=== PATIENT | female | born 1965 | race American Indian/Alaskan Native ===

== ENCOUNTER 2018-08-22 16:05 | Inpatient (IN) | payer OTHER ==
--- NOTE | 2018-08-22 17:01 | ED PDOC ---
Arrival/HPI - General Time Seen by Provider: 08/22/18 16:31 Historian: Patient - History of Present Illness Narrative History of Present Illness (Text): 08/22/18 16:40 53 year old female, whose past medical history includes hypertension, who presents to the emergency department complaining of shortness of breath for the past approximately 2 weeks-1 month. Pt reports she went to Urgent Care prior to arrival, where they did an X-Ray that showed Cardiomegaly. Patient states she used to take 3 different medications for her hypertension but stopped taking them around 2015 since they made her very sleepy and made it difficult for her to go to work. Patient states she had a cold around the months of April/May, and took 4-5 medications to help relieve symptoms. Patient states she sleeps with 2 pillows under her head and about 2-5 under her legs for leg swelling. Patient notes shortness of breath, worsened when lying flat or walking short distances. Patient notes fatigue, weakness, and bilateral leg swelling. Patient denies any abdominal pain, or any other complaints. PMD: none Time/Duration: Other (Patient notes onset of shortness of breath as past 2 weeks-1 month) Symptom Onset: Sudden Symptom Course: Unchanged Activities at Onset: Light Past Medical History - Reproductive Currently : No Family/Social History Family/Social History: No Known Family HX Allergies/Home Meds Allergies/Adverse Reactions: Allergies No Known Allergies Allergy (Verified 08/22/18 16:11) Home Medications: Home Meds Medication Instructions Recorded Confirmed No Known Home Med 08/22/18 08/22/18 Review of Systems - Review of Systems Constitutional: Fatigue. absent: Normal Gastrointestinal: Normal. absent: Abdominal Pain Musculoskeletal: absent: Normal Physical Exam - Physical Exam Narrative Physical Exam (Text): Constitutional: No acute distress. Head: Normocephalic. Atraumatic. Eyes: PERRL. ENT: Moist mucous membranes. Neck: Supple. Cardiovascular: Tachycardia, no S3. No JVD. Chest: No tenderness. Respiratory: No wheezing. GI: Soft. Nontender. Nondistended. Back: No CVA tenderness. Musculoskeletal: Pitting edema bilaterally. Skin: No rash. Neurologic: Alert, no focal deficit. Medical Decision Making ED Course and Treatment: 08/22/18 16:40 Impression: 53 year old female who presents to the emergency department for shortness of breath for past 2 weeks-1 month Differential Diagnosis included but are not limited to: Plan: -- EKG -- Labs -- X-Ray of chest -- Lasix -- Reassess and disposition Progress Notes: 08/22/18 19:50 Called lab for these results: proBNP [address] Obrien accepts patient to hospitalist service. - RAD Interpretation Radiology Orders: 08/22/18 16:47 CHEST PORTABLE [RAD] Stat - Medication Orders Current Medication Orders: Discontinued Medications Furosemide (Lasix) 20 mg IVP STAT STA Stop: 08/22/18 16:48 - Scribe Statement The provider has reviewed the documentation as recorded by the Scribe Diana Schroeder All medical record entries made by the Scribe were at my direction and personally dictated by me. I have reviewed the chart and agree that the record accurately reflects my personal performance of the history, physical exam, medical decision making, and the department course for this patient. I have also personally directed, reviewed, and agree with the discharge instructions and disposition. Disposition/Present on Arrival - Present on Arrival Any Indicators Present on Arrival: No - Disposition Have Diagnosis and Disposition been Completed?: Yes Diagnosis: CHF exacerbation Disposition: HOSPITALIZED Disposition Time: 20:00 Patient Plan: Admission, Telemetry Condition: GUARDED Discharge Instructions (ExitCare): Heart Failure (ED)
[2018-08-22 17:30] LABS: BASO # 0.02 K/mm3 (0.0-2.0); BASO % 0.2 % (0.0-3.0); EOS # 0.1 (0.0-0.7); EOS % 1.5 % (1.5-5.0); HEMOGLOBIN 11.3 g/dL (12.0-16.0); LYMPH # 1.6 (1.2-3.4); LYMPH % 19.5 % (22.0-35.0); MEAN CELL VOLUME 83.8 fl (80.0-105.0); MEAN CORPUSCULAR HEMOGLOBIN 26.1 pg (25.0-35.0); MEAN CORPUSCULAR HGB CONC 31.1 g/dl (31.0-37.0); MEAN PLATELET VOLUME 11.7 fl (7.0-11.0); MONO # 0.9 (0.1-0.6); MONO % 10.6 % (1.0-6.0); RBC 4.33 10^6/uL (3.5-6.1); RED CELL DISTRIBUTION WIDTH 16.2 % (11.5-14.5); WHITE BLOOD COUNT 8.2 10^3/uL (4.5-11.0)
[2018-08-22 17:37] LABS: INR 1.3; PARTIAL THROMBOPLASTIN TIME 29.7 Seconds (26.9-38.3); PROTHROMBIN TIME 14.4 SECONDS (9.4-12.5)
[2018-08-22 19:24] LABS: ALB/GLOB RATIO 1.1 (1.1-1.8); ALBUMIN 3.8 g/dL (3.0-4.8); ALT/SGPT 47 U/L (7-56); AST/SGOT 33 U/L (14-36); BLOOD UREA NITROGEN 17 mg/dL (7-21); CALCIUM 9.2 mg/dL (8.4-10.5); GFR NON-AFRICAN AMERICAN 58
[2018-08-22 19:50] LABS: B-TYPE NATRIURETIC PEPTIDE 3520 pg/mL (0-450); TROPONIN I 0.02 ng/mL
--- NOTE | 2018-08-22 20:34 | CP.PCM.HP ---
<Milo Beckman - Last Filed: 08/23/18 00:10> History of Present Illness - History of Present Illness History of Present Illness: Milo Beckman, PGY1 H&P for Dr. Obrien cc: "shortness of breath" Patient is a 53 year old female with PMHx of HTN who presented to the ED complaining of worsening shortness of breath for 3 months in duration. In the ED, Vitals: Temp 98.4, HR 116, BP 195/112, RR 20, SaO2 95%. Medical team was consulted for evaluation. She says her functional tolerance has decreased in the past few months. She gets short of breath walking less than half a block. She has not taken BP meds since 2016 because of the side effects. Patient also eats a diet that is high in salt. She also endorses a persistent cough for the past few months. She has orthopnea, sleeps with x2 pillows under her head and neck at night. Shortness of breath is worse when lying down flat. Denies chest pain, ab dominal pain, lightheadedness, dizziness, fevers, chills, n/v/d. She has no sick contents and no recent travel history. 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 She says she has never had an echo done before. A full 12 point ROS was conducted and unremarkable except as stated above PMD: Shaik Thomas PMhx: HTN PSHx: , brain tumor surgery (1992) Meds: none Allergies: NKDA SocialHx: denies smoking, EtOH, and recreational drug use. Lives at home with daughter. FamHx: Mother from [place] at 35 y/o. Present on Admission - Present on Admission Any Indicators Present on Admission: No Review of Systems - Review of Systems All systems: reviewed and no additional remarkable complaints except (as per HPI.) Past Patient History - Past Social History Smoking Status: Never Smoked - PSYCHIATRIC Hx Substance Use: No - SURGICAL HISTORY Hx Surgeries: No Meds Allergies/Adverse Reactions: Allergies Allergy/AdvReac Type Severity Reaction Status Date / Time No Known Allergies Allergy Verified 08/22/18 16:11 Physical Exam - Constitutional Appears: No Acute Distress - Head Exam Head Exam: ATRAUMATIC, NORMAL INSPECTION, NORMOCEPHALIC - Eye Exam Eye Exam: EOMI, Normal appearance Pupil Exam: NORMAL ACCOMODATION - ENT Exam ENT Exam: Mucous Membranes Moist, Normal Exam - Neck Exam Additional comments: Positive hepatojugular reflex. - Respiratory Exam Respiratory Exam: Rales (Fine crackles noted at the lung bases ). absent: Accessory Muscle Use, Chest Wall Tenderness, Rhonchi, Wheezes, Stridor - Cardiovascular Exam Cardiovascular Exam: REGULAR RHYTHM, +S1, +S2 - GI/Abdominal Exam GI & Abdominal Exam: Normal Bowel Sounds, Soft. absent: Distended, Firm, Guarding, Rebound, Rigid, Tenderness - Extremities Exam Extremities exam: Positive for: normal capillary refill, pedal edema, pedal pulses present. Negative for: calf tenderness, tenderness Additional comments: +2 pitting edema of the bilateral lower extremity - Neurological Exam Neurological exam: Alert, CN II-XII Intact, Oriented x3, Reflexes Normal - Psychiatric Exam Psychiatric exam: Normal Affect, Normal Mood - Skin Skin Exam: Dry, Intact, Normal Color, Warm Results - Vital Signs Recent Vital Signs: Last Vital Signs Temp 98.4 F 08/22/18 16:11 Pulse 102 H 08/22/18 18:00 Resp 20 08/22/18 18:00 BP 168/104 H 08/22/18 18:00 Pulse Ox 98 08/22/18 18:00 - Labs Result Diagrams: 08/22/18 17:19 08/22/18 19:00 Labs: Laboratory Results - last 24 hr 08/22/18 08/22/18 08/22/18 17:19 17:19 17:39 WBC 8.2 RBC 4.33 Hgb 11.3 L Hct 36.3 MCV 83.8 MCH 26.1 MCHC 31.1 RDW 16.2 H Plt Count 327 MPV 11.7 H Neut % (Auto) 68.2 H Lymph % (Auto) 19.5 L [place] % (Auto) 10.6 H Eos % (Auto) 1.5 Baso % (Auto) 0.2 Lymph # (Auto) 1.6 Deuel # (Auto) 0.9 H Eos # (Auto) 0.1 Baso # (Auto) 0.02 Absolute Neuts (auto) 5.56 PT 14.4 H INR 1.30 APTT 29.7 Sodium Potassium Chloride Carbon Dioxide Anion Gap BUN Creatinine Est GFR ( Amer) Est GFR (Non-Af Amer) Random Glucose Calcium Total Bilirubin AST ALT Alkaline Phosphatase Total Creatine Kinase Troponin I NT-Pro-B Natriuret Pep Total Protein Albumin Globulin Albumin/Globulin Ratio Beta HCG, Quant < 2.39 08/22/18 19:00 WBC RBC Hgb Hct MCV MCH MCHC RDW Plt Count MPV Neut % (Auto) Lymph % (Auto) Deuel % (Auto) Eos % (Auto) Baso % (Auto) Lymph # (Auto) Deuel # (Auto) Eos # (Auto) Baso # (Auto) Absolute Neuts (auto) PT INR APTT Sodium 142 Potassium 4.2 Chloride 107 Carbon Dioxide 28 Anion Gap 11 BUN 17 Creatinine 1.0 Est GFR ( Amer) > 60 Est GFR (Non-Af Amer) 58 Random Glucose 114 H Calcium 9.2 Total Bilirubin 1.6 H AST 33 ALT 47 Alkaline Phosphatase 108 Total Creatine Kinase 173 Troponin I 0.02 NT-Pro-B Natriuret Pep 3520 H Total Protein 7.5 Albumin 3.8 Globulin 3.6 Albumin/Globulin Ratio 1.1 Beta HCG, Quant Assessment & Plan - Assessment and Plan (Free Text) Assessment: Patient is a 53 year old female with PMHx of HTN who presented to the ED complaining of worsening shortness of breath for 3 months in duration. Patient will be admitted for new onset CHF likely due to uncontrolled HTN. Plan: New Onset CHF (NYHA Class III) in the setting of Uncontrolled HTN - Echo - Cardio consulted. Will follow up recommendations. - Initial trop is .02, will trend trops q6 - Strict ins/outs - Lasix 20mg IVP q12 - Lisinopril 20mg daily - EKG: sinus tachycardia, HR 115. No ST or T wave changes. QT prolonged. Poor R- wave progression. - T4 and TSH - Lipid Panel - LDH - BNP 3520 in ED - CXR: no active cardiopulmonary disease. Atelectasis. - Patient has premature CAD in family Hypertensive Urgency with Hx HTN - BP in ED was 195/112 - Lisinopril 20mg daily - Hydralazine 10mg PO prn - Patient does not take any BP meds at home - monitor BP GI ppx: ptx DVT ppx: hep sc Diet: HHD Dispo: Will monitor patient on telemetry. Pending echo in the morning and further recommendations from cardiologiy. Case was discussed and reviewed with Dr. Obrien <Alli Obrien - Last Filed: 08/23/18 06:55> Results - Vital Signs Recent Vital Signs: Last Vital Signs Temp 97.6 F 08/23/18 06:00 Pulse 102 H 08/23/18 06:00 Resp 20 08/23/18 06:00 BP 149/77 08/23/18 06:00 Pulse Ox 98 08/23/18 06:00 - Labs Result Diagrams: 08/22/18 17:19 08/22/18 19:00 Labs: Laboratory Results - last 24 hr 08/22/18 08/22/18 08/22/18 17:19 17:19 17:39 WBC 8.2 RBC 4.33 Hgb 11.3 L Hct 36.3 MCV 83.8 MCH 26.1 MCHC 31.1 RDW 16.2 H Plt Count 327 MPV 11.7 H Neut % (Auto) 68.2 H Lymph % (Auto) 19.5 L [place] % (Auto) 10.6 H Eos % (Auto) 1.5 Baso % (Auto) 0.2 Lymph # (Auto) 1.6 Deuel # (Auto) 0.9 H Eos # (Auto) 0.1 Baso # (Auto) 0.02 Absolute Neuts (auto) 5.56 PT 14.4 H INR 1.30 APTT 29.7 Sodium Potassium Chloride Carbon Dioxide Anion Gap BUN Creatinine Est GFR ( Amer) Est GFR (Non-Af Amer) Random Glucose Calcium Total Bilirubin AST ALT Alkaline Phosphatase Total Creatine Kinase Troponin I NT-Pro-B Natriuret Pep Total Protein Albumin Globulin Albumin/Globulin Ratio Beta HCG, Quant < 2.39 08/22/18 08/23/18 19:00 00:20 WBC RBC Hgb Hct MCV MCH MCHC RDW Plt Count MPV Neut % (Auto) Lymph % (Auto) Deuel % (Auto) Eos % (Auto) Baso % (Auto) Lymph # (Auto) Deuel # (Auto) Eos # (Auto) Baso # (Auto) Absolute Neuts (auto) PT INR APTT Sodium 142 Potassium 4.2 Chloride 107 Carbon Dioxide 28 Anion Gap 11 BUN 17 Creatinine 1.0 Est GFR ( Amer) > 60 Est GFR (Non-Af Amer) 58 Random Glucose 114 H Calcium 9.2 Total Bilirubin 1.6 H AST 33 ALT 47 Alkaline Phosphatase 108 Total Creatine Kinase 173 Troponin I 0.02 0.02 NT-Pro-B Natriuret Pep 3520 H Total Protein 7.5 Albumin 3.8 Globulin 3.6 Albumin/Globulin Ratio 1.1 Beta HCG, Quant Attending/Attestation - Attestation I have personally seen and examined this patient.: Yes I have fully participated in the care of the patient.: Yes I have reviewed all pertinent clinical information: Yes Notes (Text): 08/23/18 06:54 Patient was seen when she was in . Medical record was reviewed. Agree with history, physical examination, assessment and plan.
[2018-08-23 00:12] VITALS: BMI 42.0
--- NOTE | 2018-08-23 02:19 | CP.PCM.PN ---
<Milo Beckman - Last Filed: 08/23/18 02:16> Subjective - Date & Time of Evaluation Date of Evaluation: 08/23/18 Time of Evaluation: 02:16 - Subjective Subjective: PGY1 Note for House Doc S - Paged from nursing staff about x5 beats VTach O - Rhythm strip reviewed -- 5 beats but HR only 103. - Vital signs were repeated and reviewed. Stable. - Now in normal sinus rhythm. Pt sleeping and asymptomatic A - x5 beats Vtach P - Pt is not on any meds that would induce vtach or prolonged qt interval - She is asymptomatic; will monitor Objective - Vital Signs/Intake and Output Vital Signs (last 24 hours): Temp Pulse Resp BP Pulse Ox 97.7 F 100 H 20 169/114 H 99 08/23/18 00:01 08/23/18 01:59 08/23/18 00:01 08/23/18 00:01 08/23/18 00:01 - Medications Medications: Current Medications Furosemide (Lasix) 20 mg IVP Q12 [facility] Heparin Sodium (Porcine) (Heparin) 5,000 units SC Q8 [facility]; Protocol Hydralazine HCl (Apresoline) 10 mg IVP Q6 PRN PRN Reason: Systolic Blood Pressure Lisinopril (Zestril) 20 mg PO DAILY [facility] Pantoprazole Sodium (Protonix Ec Tab) 40 mg PO 0600 [facility] - Labs Labs: 08/22/18 17:19 08/22/18 19:00 PT 14.4 SECONDS (9.4-12.5) H 08/22/18 17:19 INR 1.30 08/22/18 17:19 APTT 29.7 Seconds (26.9-38.3) 08/22/18 17:19 <Alli Obrien - Last Filed: 08/23/18 06:53> Objective - Vital Signs/Intake and Output Vital Signs (last 24 hours): Temp Pulse Resp BP Pulse Ox 97.6 F 102 H 20 149/77 98 08/23/18 06:00 08/23/18 06:00 08/23/18 06:00 08/23/18 06:00 08/23/18 06:00 Intake and Output: 08/22/18 08/23/18 18:59 06:59 Intake Total 240 Output Total 100 Balance 140 - Medications Medications: Current Medications Furosemide (Lasix) 20 mg IVP Q12 [facility] Heparin Sodium (Porcine) (Heparin) 5,000 units SC Q8 [facility]; Protocol Last Admin: 08/23/18 05:14 Dose: 5,000 units Hydralazine HCl (Apresoline) 10 mg IVP Q6 PRN PRN Reason: Systolic Blood Pressure Last Admin: 08/23/18 02:45 Dose: 10 mg Lisinopril (Zestril) 20 mg PO DAILY [facility] Pantoprazole Sodium (Protonix Ec Tab) 40 mg PO 0600 [facility] Last Admin: 08/23/18 05:14 Dose: 40 mg - Labs Labs: 08/22/18 17:19 08/22/18 19:00 PT 14.4 SECONDS (9.4-12.5) H 08/22/18 17:19 INR 1.30 08/22/18 17:19 APTT 29.7 Seconds (26.9-38.3) 08/22/18 17:19 Attending/Attestation - Attestation I have personally seen and examined this patient.: Yes I have fully participated in the care of the patient.: Yes I have reviewed all pertinent clinical information, including history, physical exam and plan: Yes Notes (Text): 08/23/18 06:53 agree with documentation.
[2018-08-23] MEDS: Pantoprazole 40 mg EC Tab PO SCH (05:14)
[2018-08-23 07:27] LABS: BARBITURATES, UR NEGATIVE (NEGATIVE); BENZODIAZEPINES, UR NEGATIVE (NEGATIVE); OPIATES, UR NEGATIVE (NEGATIVE); PHENCYCLIDINE, UR NEGATIVE (NEGATIVE)
[2018-08-23 07:50] LABS: ALBUMIN 3.4 g/dL (3.0-4.8); ALT/SGPT 51 U/L (7-56); AST/SGOT 33 U/L (14-36); BLOOD UREA NITROGEN 15 mg/dL (7-21); CALCIUM 8.4 mg/dL (8.4-10.5); GFR NON-AFRICAN AMERICAN > 60; HDL CHOLESTEROL 34 mg/dL (29-60)
[2018-08-23 08:01] LABS: TROPONIN I 0.02 ng/mL
[2018-08-23 08:06] LABS: LDL CHOLESTEROL 73 mg/dL (0-129)
[2018-08-23 08:12] LABS: FREE T4 1.22 ng/dL (0.78-2.19)
[2018-08-23 08:30] LABS: HEMOGLOBIN 9.8 g/dL (12.0-16.0); MEAN CELL VOLUME 82.7 fl (80.0-105.0); MEAN CORPUSCULAR HEMOGLOBIN 25.7 pg (25.0-35.0); MEAN PLATELET VOLUME 11.2 fl (7.0-11.0); RBC 3.82 10^6/uL (3.5-6.1); RED CELL DISTRIBUTION WIDTH 15.9 % (11.5-14.5); WHITE BLOOD COUNT 6.6 10^3/uL (4.5-11.0)
--- NOTE | 2018-08-23 08:43 | RAD ---
Date of service: 08/22/2018 HISTORY: sob COMPARISON: No prior. FINDINGS: LUNGS: No active pulmonary disease. PLEURA: No pleural effusion or pneumothorax. Mild elevation of the right hemidiaphragm common nonspecific. CARDIOVASCULAR: No aortic atherosclerotic calcification present. Normal cardiac size. No pulmonary vascular congestion. OSSEOUS STRUCTURES: No significant abnormalities. VISUALIZED UPPER ABDOMEN: Normal. OTHER FINDINGS: None. IMPRESSION: No active disease.
--- NOTE | 2018-08-23 10:37 | CP.PCM.CON ---
History of Present Illness - History of Present Illness History of Present Illness: Awake, alert, no distress Reason for consultation: Cardiac evaluation of shortness of breath Brief history of present illness: A 53 year old female who came in to the ER due to progressive shortness of breath for the past 3 months. She claimed to have shortness of breath when walking half a block. She sleeps with 2 pillows. She ca n not lay flat due to shortness of breath. Denies chest pain. History of hypertension but not compliant with medications due to side effects. Seen and examined by me and Dr. Roe Review of Systems - Review of Systems All systems: reviewed and no additional remarkable complaints except Review of Systems: as per HPI Past Patient History - Past Social History Smoking Status: Never Smoked - CARDIAC Hx Hypertension: Yes - NEUROLOGICAL Hx Neurological Disorder: Yes (brain tumor-benign) - MUSCULOSKELETAL/RHEUMATOLOGICAL Hx Falls: No - PSYCHIATRIC Hx Substance Use: No - SURGICAL HISTORY Hx Surgeries: No Meds Allergies/Adverse Reactions: Allergies Allergy/AdvReac Type Severity Reaction Status Date / Time No Known Allergies Allergy Verified 08/22/18 16:11 - Medications Medications: Current Medications Furosemide (Lasix) 20 mg IVP Q12 [facility] Heparin Sodium (Porcine) (Heparin) 5,000 units SC Q8 [facility]; Protocol Last Admin: 08/23/18 05:14 Dose: 5,000 units Hydralazine HCl (Apresoline) 10 mg IVP Q6 PRN PRN Reason: Systolic Blood Pressure Last Admin: 08/23/18 02:45 Dose: 10 mg Lisinopril (Zestril) 20 mg PO DAILY [facility] Pantoprazole Sodium (Protonix Ec Tab) 40 mg PO 0600 [facility] Last Admin: 08/23/18 05:14 Dose: 40 mg Physical Exam - Constitutional Appears: Non-toxic, No Acute Distress - Head Exam Head Exam: NORMAL INSPECTION, NORMOCEPHALIC - Eye Exam Eye Exam: Normal appearance Pupil Exam: NORMAL ACCOMODATION - ENT Exam ENT Exam: Mucous Membranes Moist, Normal Exam - Respiratory Exam Respiratory Exam: Decreased Breath Sounds, NORMAL BREATHING PATTERN - Cardiovascular Exam Cardiovascular Exam: Tachycardia, +S1, +S2 Additional comments: Telemetry 100-110 ST - GI/Abdominal Exam GI & Abdominal Exam: Normal Bowel Sounds, Soft - Extremities Exam Extremities exam: Positive for: full ROM Additional comments: 2+edema - Neurological Exam Neurological exam: Alert, Oriented x3 - Psychiatric Exam Psychiatric exam: Normal Affect, Normal Mood - Skin Skin Exam: Dry, Normal Color, Warm Results - Vital Signs Recent Vital Signs: Last Vital Signs Temp 97.6 F 08/23/18 06:00 Pulse 102 H 08/23/18 06:00 Resp 20 08/23/18 06:00 BP 149/77 08/23/18 06:00 Pulse Ox 98 08/23/18 06:00 - Labs Result Diagrams: 08/23/18 05:00 08/23/18 07:15 Labs: Laboratory Results - last 24 hr 08/22/18 08/22/18 08/22/18 17:19 17:19 17:39 WBC 8.2 RBC 4.33 Hgb 11.3 L Hct 36.3 MCV 83.8 MCH 26.1 MCHC 31.1 RDW 16.2 H Plt Count 327 MPV 11.7 H Neut % (Auto) 68.2 H Lymph % (Auto) 19.5 L [place] % (Auto) 10.6 H Eos % (Auto) 1.5 Baso % (Auto) 0.2 Lymph # (Auto) 1.6 [place] # (Auto) 0.9 H Eos # (Auto) 0.1 Baso # (Auto) 0.02 Absolute Neuts (auto) 5.56 PT 14.4 H INR 1.30 APTT 29.7 Sodium Potassium Chloride Carbon Dioxide Anion Gap BUN Creatinine Est GFR ( Amer) Est GFR (Non-Af Amer) Random Glucose Calcium Phosphorus Magnesium Total Bilirubin AST ALT Alkaline Phosphatase Lactate Dehydrogenase Total Creatine Kinase Troponin I NT-Pro-B Natriuret Pep Total Protein Albumin Globulin Albumin/Globulin Ratio Triglycerides Cholesterol LDL Cholesterol Direct HDL Cholesterol Free T4 TSH 3rd Generation Beta HCG, Quant < 2.39 Urine Opiates Screen Urine Methadone Screen Ur Barbiturates Screen Ur Phencyclidine Scrn Ur Amphetamines Screen U Benzodiazepines Scrn U Oth Cocaine Metabols U Cannabinoids Screen 08/22/18 08/23/18 08/23/18 19:00 00:20 05:00 WBC 6.6 RBC 3.82 Hgb 9.8 L Hct 31.6 L MCV 82.7 MCH 25.7 MCHC 31.0 RDW 15.9 H Plt Count 259 MPV 11.2 H Neut % (Auto) Lymph % (Auto) [place] % (Auto) Eos % (Auto) Baso % (Auto) Lymph # (Auto) [place] # (Auto) Eos # (Auto) Baso # (Auto) Absolute Neuts (auto) PT INR APTT Sodium 142 Potassium 4.2 Chloride 107 Carbon Dioxide 28 Anion Gap 11 BUN 17 Creatinine 1.0 Est GFR ( Amer) > 60 Est GFR (Non-Af Amer) 58 Random Glucose 114 H Calcium 9.2 Phosphorus Magnesium Total Bilirubin 1.6 H AST 33 ALT 47 Alkaline Phosphatase 108 Lactate Dehydrogenase Total Creatine Kinase 173 Troponin I 0.02 0.02 NT-Pro-B Natriuret Pep 3520 H Total Protein 7.5 Albumin 3.8 Globulin 3.6 Albumin/Globulin Ratio 1.1 Triglycerides Cholesterol LDL Cholesterol Direct HDL Cholesterol Free T4 TSH 3rd Generation Beta HCG, Quant Urine Opiates Screen Urine Methadone Screen Ur Barbiturates Screen Ur Phencyclidine Scrn Ur Amphetamines Screen U Benzodiazepines Scrn U Oth Cocaine Metabols U Cannabinoids Screen 08/23/18 08/23/18 08/23/18 06:30 07:15 07:15 WBC RBC Hgb Hct MCV MCH MCHC RDW Plt Count MPV Neut % (Auto) Lymph % (Auto) [place]ack[place] % (Auto) Eos % (Auto) Baso % (Auto) Lymph # (Auto) [place] # (Auto) Eos # (Auto) Baso # (Auto) Absolute Neuts (auto) PT INR APTT Sodium 139 Potassium 4.1 Chloride 108 H Carbon Dioxide 28 Anion Gap 7 L BUN 15 Creatinine 0.9 Est GFR ( Amer) > 60 Est GFR (Non-Af Amer) > 60 Random Glucose 120 H Calcium 8.4 Phosphorus 3.6 Magnesium 2.0 Total Bilirubin 1.6 H AST 33 ALT 51 Alkaline Phosphatase 96 Lactate Dehydrogenase 705 H Total Creatine Kinase Troponin I 0.02 NT-Pro-B Natriuret Pep Total Protein 6.7 Albumin 3.4 Globulin 3.3 Albumin/Globulin Ratio 1.0 L Triglycerides 51 Cholesterol 117 L LDL Cholesterol Direct 73 HDL Cholesterol 34 Free T4 1.22 TSH 3rd Generation 1.20 Beta HCG, Quant Urine Opiates Screen Negative Urine Methadone Screen Negative Ur Barbiturates Screen Negative Ur Phencyclidine Scrn Negative Ur Amphetamines Screen Negative U Benzodiazepines Scrn Negative U Oth Cocaine Metabols Negative U Cannabinoids Screen Negative Assessment & Plan - Assessment and Plan (Free Text) Assessment: A 53 year old female who came in to the ER due to progressive shortness of breath for the past 3 months. She claimed to have shortness of breath when walking half a block. She sleeps with 2 pillows. She can not lay flat due to shortness of breath. Denies chest pain. History of hypertension but not compliant with medications due to side effects. Troponin normal x 3. Elevated BNP. Chest X ray showed no pulmonary vascular congestion.Will order echo to evaluate LV function, Stress test for ischemia, CT of chest to rule out any abnormalities. Uncontrolled hypertension. No cardiac work up done at [facility]. Leg swelling, rule out DVT will order doppler studies. Plan: No distress, mild shortness of breath on exertion For Echo to evaluate LV function For Stress test to rule out myocardial ischemia CT of chest without contrast to rule out pulmonary embolism US of lower extremities to rule out DVT Uncontrolled hypertension Started on Lopressor and Hydralazine On Zestril 20 mg daily,Lasix 20 mg daily,Hydralazine 25 mg BID, Lopressor 25 mg BID, Heparin 5000 units every 8 hours Continue current treatment Continue current medications Further recommendation during hospital course Will follow up Plan and treatment discussed with Dr. Roe Thank you Dr. Reinoso for the opportunity of taking care of Sachi Marte - Date & Time Date: 08/23/18 Time: 06:30
--- NOTE | 2018-08-23 11:30 | CARD ---
APPROVED REPORT Date of service: 08/22/2018 EKG Measurement Heart [id number] <Conclusion> Sinus tachycardia Possible Left atrial enlargement
--- NOTE | 2018-08-23 12:09 | CP.PCM.PN ---
<Eddy Sánchez - Last Filed: 08/23/18 13:03> Subjective - Date & Time of Evaluation Date of Evaluation: 08/23/18 Time of Evaluation: 12:05 - Subjective Subjective: INTERNAL MEDICINE PROGRESS NOTE FOR DR. SEB Sánchez PGY1 Pt seen and examined at bedside this am. Reports no acute complaints. Reports she has noticed swelling in legs for several months and has been noncompliant with medications. She continues to reports SOB. She otherwise denies 12 point ROS Objective - Vital Signs/Intake and Output Vital Signs (last 24 hours): Temp Pulse Resp BP Pulse Ox 97.6 F 102 H 20 155/73 H 98 08/23/18 06:00 08/23/18 06:00 08/23/18 06:00 08/23/18 10:43 08/23/18 06:00 Intake and Output: 08/23/18 08/23/18 06:59 18:59 Intake Total 240 Output Total 100 Balance 140 - Medications Medications: Current Medications Furosemide (Lasix) 20 mg IVP Q12 [facility] Last Admin: 08/23/18 10:43 Dose: 20 mg Heparin Sodium (Porcine) (Heparin) 5,000 units SC Q8 [facility]; Protocol Last Admin: 08/23/18 05:14 Dose: 5,000 units Hydralazine HCl (Apresoline) 10 mg IVP Q6 PRN PRN Reason: Systolic Blood Pressure Last Admin: 08/23/18 02:45 Dose: 10 mg Hydralazine HCl (Apresoline) 25 mg PO BID [facility] Lisinopril (Zestril) 20 mg PO DAILY [facility] Last Admin: 08/23/18 10:43 Dose: 20 mg Metoprolol Tartrate (Lopressor) 25 mg PO BID [facility] Pantoprazole Sodium (Protonix Ec Tab) 40 mg PO 0600 [facility] Last Admin: 08/23/18 05:14 Dose: 40 mg - Labs Labs: 08/23/18 05:00 08/23/18 07:15 PT 14.4 SECONDS (9.4-12.5) H 08/22/18 17:19 INR 1.30 08/22/18 17:19 APTT 29.7 Seconds (26.9-38.3) 08/22/18 17:19 - Constitutional Appears: Well, Non-toxic, No Acute Distress - Head Exam Head Exam: NORMAL INSPECTION, NORMOCEPHALIC - Eye Exam Eye Exam: EOMI, Normal appearance - ENT Exam ENT Exam: Mucous Membranes Moist, Normal Exam - Neck Exam Neck Exam: Normal Inspection - Respiratory Exam Respiratory Exam: Decreased Breath Sounds, Clear to Ausculation Bilateral, NORMAL BREATHING PATTERN - Cardiovascular Exam Cardiovascular Exam: Tachycardia, +S1, +S2 - GI/Abdominal Exam GI & Abdominal Exam: Soft. absent: Tenderness Additional comments: obese - Extremities Exam Extremities Exam: Pedal Edema. absent: Calf Tenderness - Back Exam Back Exam: NORMAL INSPECTION - Neurological Exam Neurological Exam: Alert, Awake, Oriented x3 - Psychiatric Exam Psychiatric exam: Normal Affect, Normal Mood - Skin Skin Exam: Dry, Intact, Warm Assessment and Plan - Assessment and Plan (Free Text) Assessment: 53 y/o F with PMHx of HTN who presented to the ED complaining of worsening shortness of breath for 3 months in duration. Patient admitted for dypnea with questionable CHF 2/2 uncontrolled HTN. Plan: Acute systolic congestive heart failure in the setting of uncontrolled hypertension No prior echo's in chart, unclear whether chronic CHF Echo reveals severely impaired systolic function, EF: 25%. LV mildly dilated. Mod concentric LVH. Initial trop is .02 x 3. EKG: sinus tachycardia, HR 115. No ST or T wave changes. QT prolonged. Poor R-wave progression. TSH/T4/Lipid panel wnl. Elevated BNP initially continue Lasix 20mg IVP q12 obtain CTA to rule out PE strict I/Os Daily weights Pt to undergo stress test with cardiology Hypertensive Urgency with Hx HTN BP in ED was 195/112. Pt has been noncompliant with antihypertensives Lisinopril 20mg daily Hydralazine 25mg bid Carevedilol 12.5mg bid Abdominal pain elevated T. Jarad f/u abdomen u/s DVT/GI PPx: hep/protonix po Case seen, examined and discussed with attending physician, Dr. Seb Sánchez PGY1 <Sue Grigsby - Last Filed: 08/25/18 06:57> Objective - Vital Signs/Intake and Output Vital Signs (last 24 hours): Temp Pulse Resp BP Pulse Ox 98.3 F 82 20 126/80 98 08/25/18 06:00 08/25/18 06:00 08/25/18 06:00 08/25/18 06:00 08/25/18 06:00 Intake and Output: 08/24/18 08/25/18 18:59 06:59 Intake Total 420 Output Total 400 Balance 20 - Medications Medications: Current Medications Aspirin (Ecotrin) 81 mg PO DAILY [facility] Carvedilol (Coreg) 25 mg PO BID [facility] Last Admin: 08/24/18 17:46 Dose: 25 mg Clopidogrel Bisulfate (Plavix) 75 mg PO DAILY [facility] Furosemide (Lasix) 20 mg IVP Q12 [facility] Last Admin: 08/24/18 21:17 Dose: 20 mg Heparin Sodium (Porcine) (Heparin) 5,000 units SC Q8 [facility]; Protocol Last Admin: 08/25/18 06:19 Dose: 5,000 units Hydralazine HCl (Apresoline) 10 mg IVP Q6 PRN PRN Reason: Systolic Blood Pressure Last Admin: 08/23/18 02:45 Dose: 10 mg Hydralazine HCl (Apresoline) 25 mg PO BID [facility] Last Admin: 08/24/18 17:47 Dose: 25 mg Lisinopril (Zestril) 20 mg PO DAILY [facility] Last Admin: 08/24/18 13:06 Dose: 20 mg Pantoprazole Sodium (Protonix Ec Tab) 40 mg PO 0600 [facility] Last Admin: 08/25/18 06:19 Dose: 40 mg - Labs Labs: 08/25/18 05:30 08/25/18 05:30 PT 14.4 SECONDS (9.4-12.5) H 08/22/18 17:19 INR 1.30 08/22/18 17:19 APTT 29.7 Seconds (26.9-38.3) 08/22/18 17:19 Attending/Attestation - Attestation I have personally seen and examined this patient.: Yes I have fully participated in the care of the patient.: Yes I have reviewed all pertinent clinical information, including history, physical exam and plan: Yes Notes (Text): Patient seen and examined by me with resident at 8:50 AM in 08/23/18. Case including HPI, physical exam, and assessment and plan discussed with resident. Agree with above with following additions/corrections. Patient is a 53-year-old female past medical history significant for hypertension and noncompliance with medications that presented to the emergency room with shortness of breath and lower extremity edema worsening over the past 3 months. Patient states she is feeling ok. States she still feels short of breath. Also complains of swelling in her lower extremities. Patient states she was on blood pressure medications years ago but stopped taking them a long time ago. Patient states she thought the shortness of breath may be related to a cold so she eduardo d to come into the emergency room until she realized it was not getting better. Patient denies chest pain or palpitations. No fevers or chills. No nausea, vomiting, or abdominal pain. No dysuria or difficulty urinating. No diarrhea or constipation. Physical exam: General: Awake and alert sitting up in bed in no acute distress HEENT: Normocephalic, atraumatic. Extraocular muscles intact, pupils equal and reactive, no scleral icterus. Oropharynx is pink and moist. No pharyngeal erythema or exudate apreciated. Neck is supple. Cardiovascular: Regular rhythm. Normal S1 and S2. No murmurs, rubs, or gallops appreciated Pulmonary: Normal respiratory effort. Decreased breath sounds at bases. No rh onchi, rales, or wheezing appreciated. Gastrointestinal: Soft, nondistended. Nontender. Positive bowel sounds all 4 quadrants. No guarding. Musculoskeletal: Moves all extremities. No calf tenderness. Positive bilateral lower extremity pitting edema. Central nervous system: AAOx3, CN 2-12 grossly intact. Dermatologic: Skin warm and dry. Assessment and plan: Patient is a 53-year-old female past medical history significant for hypertension and noncompliance with medications that presented to the emergency room with shortness of breath and lower extremity edema worsening over the past 3 months. 1. Dyspnea likely secondary to acute systolic CHF exacerbation. 2-D echo per lead relay tester shows left ventricle is mildly dilated, moderate concentric left ventricular hypertrophy, systolic function is severely impaired, ejection fraction 25%, right ventricular systolic function is normal, right ventricle is normal size, right atrium size is normal, left atrium is mildly dilated, no pericardial effusion, mitral regurgitation is moderate. Cardiology following, recommendations appreciated. Continue IV Lasix. Continue lisinopril. Started on Coreg. Monitor ins and outs. Check daily weights. CT chest results pending. 2. Hypertension. Continue lisinopril, hydralazine, and Coreg. Continue IV Lasix. 3. Elevated T. Bili. No abdominal pain. Abdominal ultrasound per radiologist showed unremarkable abdominal ultrasound examination, small right pleural effusion noted. 4. Bilateral lower extremity edema. Likely secondary to acute systolic CHF. Follow-up bilateral lower extremity venous Dopplers. Continue IV Lasix. 5. GI/DVT prophylaxis. Protonix/Heparin 6. Patient is a full code Case discussed in detail with the patient regarding current diagnosis and treatment plan. All questions answered.
--- NOTE | 2018-08-23 12:09 | CARD ---
APPROVED REPORT Date of service: 08/23/2018 EXAM: Two-dimensional and M-mode echocardiogram with Doppler and color Doppler. INDICATION Congestive Heart Failure 2D DIMENSIONS Left Atrium (2D)4.7 (1.6-4.0cm)IVSd1.4 (0.7-1.1cm) LVDd5.5 (3.9-5.9cm)PWd1.4 (0.7-1.1cm) LVDs4.9 (2.5-4.0cm)LVEF (%)25.0 (>50%) M-Mode DIMENSIONS Aortic Root2.70 (2.2-3.7cm)Aortic Cusp Exc.1.70 (1.5-2.0cm) Aortic Valve AoV Peak Bhoqwpto759.0cm/Katie Peak GR.11mmHg Mitral Valve E/A ratio0.0 TDI E/Lateral E'0.0E/Medial E'0.0 Tricuspid Valve TR Peak [id number] [id number] Peak Gr.41mmHg [id number] LEFT VENTRICLE The Left Ventricle is mildly dilated. There is mild to moderate concentric left ventricular hypertrophy. The systolic function is severely impaired. Ej.Fr:25%. RIGHT VENTRICLE The right ventricle is normal size. The right ventricular systolic function is normal. ATRIA The left atrium is mildly dilated. The right atrium size is normal. AORTIC VALVE The aortic valve is normal in structure. MITRAL VALVE The mitral valve is normal in structure. Mitral regurgitation is moderate. TRICUSPID VALVE The tricuspid valve is normal in structure. There is mild tricuspid regurgitation. PERICARDIAL EFFUSION There is no pericardial effusion. <Conclusion> The Left Ventricle is mildly dilated. There is moderate concentric left ventricular hypertrophy. The systolic function is severely impaired. Ej.Fr:25%. The right ventricle is normal size. The right ventricular systolic function is normal. The right atrium size is normal. The left atrium is mildly dilated. The aortic valve is normal in structure. The mitral valve is normal in structure. Mitral regurgitation is moderate. The tricuspid valve is normal in structure. There is mild tricuspid regurgitation. There is no pericardial effusion.
--- NOTE | 2018-08-23 14:42 | CT ---
Date of service: 08/23/2018 PROCEDURE: CT Chest without contrast HISTORY: rulo out embolism COMPARISON: None available. TECHNIQUE: Contiguous axial images were obtained through the chest without intravenous contrast enhancement. Sagittal and coronal reconstructions were performed. Radiation dose: Total exam DLP = 1123.11 mGy-cm. This CT exam was performed using one or more of the following dose reduction techniques: Automated exposure control, adjustment of the mA and/or kV according to patient size, and/or use of iterative reconstruction technique. FINDINGS: LUNGS: Limited dependent subsegmental axis bilateral bases appears minimal. No definite infiltrates. Central airways appear clear throughout. MEDIASTINUM: The indication reads "rule out embolism." This is impossible without intravenous contrast. The main pulmonary artery measures 2.8 cm which does not suggest pulmonary artery hypertension. Evaluation of the sizes of the lateral ventricles is not possible without intravenous contrast and ventricular strain is accordingly not evaluated. Unremarkable thoracic aorta. No aneurysm. Cardiomegaly is identified. Main pulmonary artery unremarkable. No vascular congestion. No lymphadenopathy. No aortic atherosclerotic calcification. PLEURA: Mild right pleural effusion. Trace left pleural effusion. Trace pericardial effusion. No pneumothorax. BONES: No fracture. No destructive lesion. UPPER ABDOMEN: Mild adrenal hyperplasia is not excluded. OTHER FINDINGS: None. IMPRESSION: 1. Pulmonary embolism is not evaluated in this exam due to lack of intravenous contrast. Consider CT angiography of the chest if this remains of clinical concern. 2. Cardiomegaly. No significant pulmonary artery dilatation. 3. No definite infiltrates. Mild right and minimal left pleural effusions are noted as well as minimal subsegmental dependent atelectasis bilaterally. 4. Mild bilateral adrenal hyperplasia is not excluded incidentally.
--- NOTE | 2018-08-23 15:34 | US ---
Date of service: 08/23/2018 HISTORY: RUQ pain and TB 1.6 COMPARISON: None. TECHNIQUE: Sonographic evaluation of the abdomen. FINDINGS: LIVER: Measures 16.9 cm. Normal echogenicity of the liver parenchyma. No mass. No intrahepatic bile duct dilatation. GALLBLADDER: Unremarkable. No gallstones. COMMON BILE DUCT: Measures 4 mm. No stones. No dilatation. PANCREAS: Unremarkable as visualized. No mass. No ductal dilatation. RIGHT KIDNEY: Measures 11.0cm. Normal echogenicity. No calculus, mass, or hydronephrosis. LEFT KIDNEY: Measures 10.3cm. Normal echogenicity. No calculus, mass, or hydronephrosis. SPLEEN: Normal in size and contour. No mass. AORTA: No aneurysmal dilatation. IVC: Unremarkable. OTHER FINDINGS: Small right pleural effusion IMPRESSION: Unremarkable abdominal ultrasound examination. Small right pleural effusion noted.
[2018-08-24] MEDS: Pantoprazole 40 mg EC Tab PO SCH (05:08)
[2018-08-24 06:43] LABS: ALT/SGPT 49 U/L (7-56); AST/SGOT 27 U/L (14-36); BLOOD UREA NITROGEN 17 mg/dL (7-21); CALCIUM 8.6 mg/dL (8.4-10.5); GFR NON-AFRICAN AMERICAN 52
[2018-08-24 06:49] LABS: HEMOGLOBIN 9.5 g/dL (12.0-16.0); MEAN CORPUSCULAR HEMOGLOBIN 25.7 pg (25.0-35.0); MEAN CORPUSCULAR HGB CONC 30.9 g/dl (31.0-37.0); MEAN PLATELET VOLUME 11.1 fl (7.0-11.0); RBC 3.7 10^6/uL (3.5-6.1); WHITE BLOOD COUNT 5.5 10^3/uL (4.5-11.0)
--- NOTE | 2018-08-24 07:23 | CP.PCM.PN ---
Subjective - Date & Time of Evaluation Date of Evaluation: 08/24/18 Time of Evaluation: 06:25 - Subjective Subjective: Sitting side of bed, awake, alert, no distress Reason for consultation: Cardiac evaluation of shortness of breath, new onset congestive heart failure. History of hypertension Seen and examined by me and Dr. Roe Objective - Vital Signs/Intake and Output Vital Signs (last 24 hours): Temp Pulse Resp BP Pulse Ox 98.2 F 105 H 22 145/74 99 08/24/18 06:00 08/24/18 06:00 08/24/18 06:00 08/24/18 06:00 08/24/18 06:00 Intake and Output: 08/24/18 08/24/18 06:59 18:59 Intake Total 360 Output Total 1900 Balance -1540 - Medications Medications: Current Medications Carvedilol (Coreg) 12.5 mg PO BID [facility] Last Admin: 08/23/18 17:55 Dose: 12.5 mg Furosemide (Lasix) 20 mg IVP Q12 [facility] Last Admin: 08/23/18 22:10 Dose: 20 mg Heparin Sodium (Porcine) (Heparin) 5,000 units SC Q8 [facility]; Protocol Last Admin: 08/24/18 05:08 Dose: 5,000 units Hydralazine HCl (Apresoline) 10 mg IVP Q6 PRN PRN Reason: Systolic Blood Pressure Last Admin: 08/23/18 02:45 Dose: 10 mg Hydralazine HCl (Apresoline) 25 mg PO BID [facility] Last Admin: 08/23/18 17:55 Dose: 25 mg Lisinopril (Zestril) 20 mg PO DAILY [facility] Last Admin: 08/23/18 10:43 Dose: 20 mg Pantoprazole Sodium (Protonix Ec Tab) 40 mg PO 0600 [facility] Last Admin: 08/24/18 05:08 Dose: 40 mg - Labs Labs: 08/24/18 06:00 08/24/18 06:00 PT 14.4 SECONDS (9.4-12.5) H 08/22/18 17:19 INR 1.30 08/22/18 17:19 APTT 29.7 Seconds (26.9-38.3) 08/22/18 17:19 - Constitutional Appears: Non-toxic, No Acute Distress - Head Exam Head Exam: NORMAL INSPECTION, NORMOCEPHALIC - Eye Exam Eye Exam: Normal appearance Pupil Exam: NORMAL ACCOMODATION - ENT Exam ENT Exam: Mucous Membranes Moist, Normal Exam - Respiratory Exam Respiratory Exam: Decreased Breath Sounds, NORMAL BREATHING PATTERN - Cardiovascular Exam Cardiovascular Exam: REGULAR RHYTHM, +S1, +S2 Additional comments: Telemetry NSR 80-90's - GI/Abdominal Exam GI & Abdominal Exam: Soft, Normal Bowel Sounds - Extremities Exam Extremities Exam: Full ROM, Pedal Edema Additional comments: 3+ edema - Neurological Exam Neurological Exam: Alert, Awake, Oriented x3 - Psychiatric Exam Psychiatric exam: Normal Affect, Normal Mood - Skin Skin Exam: Dry, Normal Color, Warm Assessment and Plan - Assessment and Plan (Free Text) Assessment: A 53 year old female who came in to the ER due to progressive shortness of breath for the past 3 months. She claimed to have shortness of breath when walking half a block. She sleeps with 2 pillows. She can not lay flat due to shortness of breath. Denies chest pain. History of hypertension but not compliant with medications due to side effects. Troponin normal x 3. Elevated BNP. Chest X ray showed no pulmonary vascular congestion.Will order echo to evaluate LV function, Stress test for ischemia, CT of chest - cardiomegaly, no infiltrates, mild pleural effusion. Doppler studies of lower extremities pending result. Uncontrolled hypertension. No cardiac work up done at [facility] [place]. Leg swelling. Echo done, mildly dilated ventricles, moderate concentric LV hypertrophy, severely impaired systolic function LVEF 25%, RV systolic function is normal,moderate MR,mild TR. No pericardial effusion. New onset systolic dysfu nction congestive heart failure. For Stress test today and possible cardiac cath Monday. Plan: No distress, denies shortness of breath Echo done low LVEF 25% For Stress test today Possible cardiac cath on Monday Controlled blood pressure Controlled heart rate Started on Lopressor and Hydralazine On Zestril 20 mg daily,Lasix 20 mg daily,Hydralazine 25 mg BID, Lopressor 25 mg BID, Heparin 5000 units every 8 hours Continue current treatment Continue current medications Lifestyle modification Weight reduction Will follow up Plan and treatment discussed with Dr. Roe
[2018-08-24] MEDS ORDERED: Aminophylline 25 mg/ml Inj ONE (08:59)
--- NOTE | 2018-08-24 15:38 | CP.PCM.PN ---
<Eddy Sánchez - Last Filed: 08/24/18 16:16> Subjective - Date & Time of Evaluation Date of Evaluation: 08/24/18 Time of Evaluation: 15:32 - Subjective Subjective: INTERNAL MEDICINE PROGRESS NOTE FOR DR. SEB Sánchez PGY1 Pt seen and examined at bedside this am. Pt underwent stress today. awaiting results. Tolerating her diet. No acute complaints Objective - Vital Signs/Intake and Output Vital Signs (last 24 hours): Temp Pulse Resp BP Pulse Ox 98.2 F 93 H 22 142/103 H 99 08/24/18 06:00 08/24/18 13:18 08/24/18 06:00 08/24/18 13:18 08/24/18 06:00 Intake and Output: 08/24/18 08/24/18 06:59 18:59 Intake Total 360 Output Total 1900 Balance -1540 - Medications Medications: Current Medications Carvedilol (Coreg) 12.5 mg PO BID [facility] Last Admin: 08/24/18 13:07 Dose: 12.5 mg Furosemide (Lasix) 20 mg IVP Q12 [facility] Last Admin: 08/24/18 13:06 Dose: 20 mg Heparin Sodium (Porcine) (Heparin) 5,000 units SC Q8 [facility]; Protocol Last Admin: 08/24/18 13:06 Dose: 5,000 units Hydralazine HCl (Apresoline) 10 mg IVP Q6 PRN PRN Reason: Systolic Blood Pressure Last Admin: 08/23/18 02:45 Dose: 10 mg Hydralazine HCl (Apresoline) 25 mg PO BID [facility] Last Admin: 08/24/18 13:18 Dose: 25 mg Lisinopril (Zestril) 20 mg PO DAILY [facility] Last Admin: 08/24/18 13:06 Dose: 20 mg Pantoprazole Sodium (Protonix Ec Tab) 40 mg PO 0600 [facility] Last Admin: 08/24/18 05:08 Dose: 40 mg - Labs Labs: 08/24/18 06:00 08/24/18 06:00 PT 14.4 SECONDS (9.4-12.5) H 08/22/18 17:19 INR 1.30 08/22/18 17:19 APTT 29.7 Seconds (26.9-38.3) 01/30/19 17:19 - Constitutional Appears: Well, Non-toxic, No Acute Distress - Head Exam Head Exam: NORMAL INSPECTION, NORMOCEPHALIC - Eye Exam Eye Exam: EOMI, Normal appearance - ENT Exam ENT Exam: Normal Exam - Neck Exam Neck Exam: Normal Inspection - Respiratory Exam Respiratory Exam: Clear to Ausculation Bilateral, NORMAL BREATHING PATTERN - Cardiovascular Exam Cardiovascular Exam: REGULAR RHYTHM, +S1, +S2 - GI/Abdominal Exam GI & Abdominal Exam: Soft. absent: Tenderness - Extremities Exam Extremities Exam: Pedal Edema Additional comments: 1+ pitting edema - Back Exam Back Exam: NORMAL INSPECTION - Neurological Exam Neurological Exam: Alert, Awake, Oriented x3 - Psychiatric Exam Psychiatric exam: Normal Affect, Normal Mood - Skin Skin Exam: Dry, Intact, Warm Assessment and Plan - Assessment and Plan (Free Text) Assessment: 53 y/o F with PMHx of HTN who presented to the ED complaining of worsening shortness of breath for 3 months in duration. Patient admitted for dypnea with questionable CHF 2/2 uncontrolled HTN. Plan: Acute systolic congestive heart failure in the setting of uncontrolled hypertension No prior echo's in chart, unclear whether chronic CHF Echo reveals severely impaired systolic function, EF: 25%. LV mildly dilated. Mod concentric LVH. Initial trop is .02 x 3. EKG: sinus tachycardia, HR 115. No ST or T wave changes. QT prolonged. Poor R-wave progression. TSH/T4/Lipid panel wnl. Elevated BNP initially Pt underwent stress today. Results pending CTA chest (-) for PE continue Lasix 20mg IVP q12 strict I/Os Daily weights Hypertensive Urgency with Hx HTN Pt has been noncompliant with antihypertensives Lisinopril 20mg daily Hydralazine 25mg bid Carevedilol 12.5mg bid Abdominal pain elevated T. Jarad Abd u/s (-) DVT/GI PPx: hep/protonix po Case seen, examined and discussed with attending physician, Dr. Seb Sánchez PGY1 <Sue Grigsby - Last Filed: 08/25/18 16:16> Objective - Vital Signs/Intake and Output Vital Signs (last 24 hours): Temp Pulse Resp BP Pulse Ox 98.3 F 87 20 115/78 98 08/25/18 06:00 08/25/18 10:58 08/25/18 06:00 08/25/18 10:58 08/25/18 06:00 Intake and Output: 08/25/18 08/25/18 06:59 18:59 Intake Total 420 Output Total 400 Balance 20 - Medications Medications: Current Medications Aspirin (Ecotrin) 81 mg PO DAILY [facility] Last Admin: 08/25/18 10:58 Dose: 81 mg Carvedilol (Coreg) 25 mg PO BID [facility] Last Admin: 08/25/18 10:58 Dose: 25 mg Clopidogrel Bisulfate (Plavix) 75 mg PO DAILY [facility] Last Admin: 08/25/18 10:58 Dose: 75 mg Furosemide (Lasix) 20 mg IVP Q12 [facility] Last Admin: 08/25/18 10:58 Dose: 20 mg Heparin Sodium (Porcine) (Heparin) 5,000 units SC Q8 [facility]; Protocol Last Admin: 08/25/18 13:30 Dose: 5,000 units Hydralazine HCl (Apresoline) 10 mg IVP Q6 PRN PRN Reason: Systolic Blood Pressure Last Admin: 08/23/18 02:45 Dose: 10 mg Hydralazine HCl (Apresoline) 25 mg PO BID [facility] Last Admin: 08/25/18 10:58 Dose: 25 mg Insulin Human Regular (Humulin R Low) 0 units SC ACHS [facility]; Protocol Lisinopril (Zestril) 20 mg PO DAILY [facility] Last Admin: 08/25/18 10:58 Dose: 20 mg Pantoprazole Sodium (Protonix Ec Tab) 40 mg PO 0600 [facility] Last Admin: 08/25/18 06:19 Dose: 40 mg - Labs Labs: 08/25/18 05:30 08/25/18 05:30 PT 14.4 SECONDS (9.4-12.5) H 08/22/18 17:19 INR 1.30 08/22/18 17:19 APTT 29.7 Seconds (26.9-38.3) 08/22/18 17:19 Attending/Attestation - Attestation I have personally seen and examined this patient.: Yes I have fully participated in the care of the patient.: Yes I have reviewed all pertinent clinical information, including history, physical exam and plan: Yes Notes (Text): Patient seen and examined by me with resident at 2PM on 08/24/18. Case including HPI, physical exam, and assessment and plan discussed with resident. Agree with above with following additions/corrections. Patient is a 53-year-old female past medical history significant for hypertension and noncompliance with medications that presented to the emergency room with shortness of breath and lower extremity edema worsening over the past 3 months. Patient states she feels a little better today. Shortness of breath "slightly improved." Still with welling in her lower extremities. Patient is s/p stress test and feels it went ok. Patient denies chest pain or palpitations. No fevers or chills. No nausea, vomiting, or abdominal pain. No dysuria or difficulty urinating. No diarrhea or constipation. Physical exam: General: Awake and alert sitting up in bed in no acute distress HEENT: Normocephalic, atraumatic. Extraocular muscles intact, pupils equal and reactive, no scleral icterus. Oropharynx is pink and moist. No pharyngeal erythema or exudate apreciated. Neck is supple. Cardiovascular: Regular rhythm. Normal S1 and S2. No murmurs, rubs, or gallops appreciated Pulmonary: Normal respiratory effort. Decreased breath sounds at bases. No rhonchi, rales, or wheezing appreciated. Gastrointestinal: Soft, nondistended. Nontender. Positive bowel sounds all 4 quadrants. No guarding. Musculoskeletal: Moves all extremities. No calf tenderness. Positive bilateral lower extremity pitting edema. Central nervous system: AAOx3, CN 2-12 grossly intact. Dermatologic: Skin warm and dry. Assessment and plan: Patient is a 53-year-old female past medical history significant for hypertension and noncompliance with medications that presented to the emergency room with shortness of breath and lower extremity edema worsening over the past 3 months. 1. Dyspnea likely secondary to acute systolic CHF exacerbation. S/P stress test, results pending. Cardiology following, recommendations appreciated. Continue to monitor ins and outs. Continue IV Lasix. Continue lisinopril and Coreg. 2-D echo per rn visiting shows left ventricle is mildly dilated, moderate concentric left ventricular hypertrophy, systolic function is severely impaired, ejection fraction 25%, right ventricular systolic function is normal, right ventricle is normal size, right atrium size is normal, left atrium is mildly dilated, no pericardial effusion, mitral regurgitation is moderate. Chest CT per radiologist showed cardiomegaly, no significant pulmonary artery di latation, no definitive infiltrates, mild right and minimal left pleural effusions are noted as well as minimal subtle segmental dependent atelectasis bilaterally, mild bilateral adrenal hyperplasia not excluded. CTA chest to rule out PE pending. 2. Hypertension. Continue lisinopril, hydralazine, and Coreg. Continue IV Lasix. 3. Elevated T. Bili. No abdominal pain. Abdominal ultrasound per radiologist showed unremarkable abdominal ultrasound examination, small right pleural effusion noted. 4. Bilateral lower extremity edema. Likely secondary to acute systolic CHF. Lower extremity venous Dopplers negative for DVT. Continue IV Lasix. 5. GI/DVT prophylaxis. Protonix/Heparin 6. Patient is a full code Case discussed in detail with the patient regarding current diagnosis and treatment plan. All questions answered.
--- NOTE | 2018-08-24 20:05 | CARD ---
APPROVED REPORT Date of service: 08/24/2018 Protocol: LEXISCAN Test Type: Lexiscan Sestamibi Stress Test Attending Physician: Dr. Gunnar Wong Referring Physician: Dr. Harshad Reinoso Test Indications: Chest Pain, New CHF Height:5 ft 2 in Weight:270lbs Medications: Coreg, Lasix, Heparin, Hydralazine Zestril,Protonix, Medical History: 53 year old female with a history of HTN Target HR: 169 bpm Resting ECG: RSR. Resting Heart Rate: 93 bpm Resting Blood Pressure: 140/92mmHg Submaximum (85%): 144 bpm PROCEDURE Pharmacologic stress testing was performed using 0.4mg per 5ml of regadenoson given intravenously over 7-10 seconds. POST EXERCISE Reason for Termination: Protocol completed Target HR: No Max HR: 96 bpm 60% of Maximum Predicted HR: 169 bpm Exercise duration: 00:32 min:sec, 0 Stage Exercise capacity: 1.0METs Max Blood Pressure: 140/92mmHg Blood Pressure response to exercise: normal resting BP - appropriate response Heart Rate response to exercise: appropriate Chest Pain: No, none Angina index: 0 Arrhythmia: No, none ST Change: No, none Deviation: 0 mm INTERPRETATION Stress EKG Conclusion: IV LEXISCAN NUCLEAR STRESS TEST NEGATIVE FOR CHEST PAIN AND NEGATIVE FOR ST-T CHANGES. NUCLEAR SCAN REPORT TO FOLLOW. Signed by Gunnar Wong Electronically Approved: 08/24/2018 09:47:08 EXAM: Myocardial Perfusion REST/STRESS Stress Test Type: Pharmacologic Imaging Protocol The imaging protocol used to acquire images was Rest Tc-99m/stress Tc-99m 1 day Rest Spect myocardial perfusion imaging was performed in supine position 45 minutes following the injection of 10.6 mCi of Tc-99 Myoview. At peak stress, the patient was injected intravenously with 30.2mCi of Tc-99 tetrofosmin after an infusion time of 0 minutes and 10 seconds. Gated Stress Spect was performed 65 minutes after intravenous Tc-99 Myoview injection. The images were gated to evaluate regional wall motion and calculate ventricular ejection fraction.Images were reconstructed using backfilter projection method in short horizontal and verticle long axis. Spect slices were generated. LV Perfusion The quality of the study is goodn. The left ventricle is moderately enlarged in size with thickened myocardium. The right ventricle is unremarkable. The lung uptake is within normal limits. The distribution of tracer reveals an area of moderately to severely decreased perfusion involving mid to basal anteroseptal wall on the stress study. The remainder of the LV myocardium is unremarkable. The rest myocardial perfusion study shows improvement of the anteroseptal defect. Wall Motion Wall motion study shows diffuse hypokinesis of the left ventricle. LVEF = 39 %. Conclusion 1. Abnormal SPECT myocardial perfusion study. 2. Partially reversible, anteroseptal defect is suspicous of ischemia. 3. Moderate LV dysfunction with diffuse hypokinesis.
--- NOTE | 2018-08-24 21:08 | US ---
HISTORY: Leg pain and swelling. Evaluate for DVT PHYSICIAN(S): Zeus Odonnell MD. TECHNIQUE: Duplex sonography and color-flow Doppler with graded compression were used to evaluate the deep venous systems of both lower extremities. The exam is somewhat limited by body habitus and edema FINDINGS: The visualized deep venous systems of both lower extremities are sonographically normal and compressible. Normal wave forms and augmentation are seen. There is no sonographic evidence for deep venous thrombosis in the visualized segments of both lower extremities. IMPRESSION: No sonographic evidence for deep venous thrombosis in the visualized segments of both lower extremities.
[2018-08-25] MEDS: Pantoprazole 40 mg EC Tab PO SCH (06:19)
[2018-08-25 06:23] LABS: HEMOGLOBIN 9.1 g/dL (12.0-16.0); MEAN CELL VOLUME 83.1 fl (80.0-105.0); MEAN CORPUSCULAR HEMOGLOBIN 25.6 pg (25.0-35.0); MEAN CORPUSCULAR HGB CONC 30.7 g/dl (31.0-37.0); MEAN PLATELET VOLUME 11.2 fl (7.0-11.0); RBC 3.56 10^6/uL (3.5-6.1); RED CELL DISTRIBUTION WIDTH 15.9 % (11.5-14.5)
[2018-08-25 06:54] LABS: ALBUMIN 2.9 g/dL (3.0-4.8); ALT/SGPT 36 U/L (7-56); AST/SGOT 25 U/L (14-36); BLOOD UREA NITROGEN 20 mg/dL (7-21); CALCIUM 8.6 mg/dL (8.4-10.5); GFR NON-AFRICAN AMERICAN 52
--- NOTE | 2018-08-25 11:28 | CP.PCM.PN ---
<Edwin Peñaloza - Last Filed: 08/25/18 11:25> Subjective - Date & Time of Evaluation Date of Evaluation: 08/25/18 Time of Evaluation: 11:25 - Subjective Subjective: Edwin Peñaloza D.O. PGY-3, Internal Medicine Resident, Hospitalists Progress Note 53 year old female with a PMH of HTN who presented complaining of worsening shortness of breath for 3 months and was found to have acute HFrEF. Patient was seen and examined at bedside. No acute overnight events. SOB improving. Objective - Vital Signs/Intake and Output Vital Signs (last 24 hours): Temp Pulse Resp BP Pulse Ox 98.3 F 87 20 115/78 98 08/25/18 06:00 08/25/18 10:58 08/25/18 06:00 08/25/18 10:58 08/25/18 06:00 Intake and Output: 08/25/18 08/25/18 06:59 18:59 Intake Total 420 Output Total 400 Balance 20 - Medications Medications: Current Medications Aspirin (Ecotrin) 81 mg PO DAILY [facility] Last Admin: 08/25/18 10:58 Dose: 81 mg Carvedilol (Coreg) 25 mg PO BID [facility] Last Admin: 08/25/18 10:58 Dose: 25 mg Clopidogrel Bisulfate (Plavix) 75 mg PO DAILY [facility] Last Admin: 08/25/18 10:58 Dose: 75 mg Furosemide (Lasix) 20 mg IVP Q12 [facility] Last Admin: 08/25/18 10:58 Dose: 20 mg Heparin Sodium (Porcine) (Heparin) 5,000 units SC Q8 [facility]; Protocol Last Admin: 08/25/18 06:19 Dose: 5,000 units Hydralazine HCl (Apresoline) 10 mg IVP Q6 PRN PRN Reason: Systolic Blood Pressure Last Admin: 08/23/18 02:45 Dose: 10 mg Hydralazine HCl (Apresoline) 25 mg PO BID [facility] Last Admin: 08/25/18 10:58 Dose: 25 mg Lisinopril (Zestril) 20 mg PO DAILY [facility] Last Admin: 08/25/18 10:58 Dose: 20 mg Pantoprazole Sodium (Protonix Ec Tab) 40 mg PO 0600 [facility] Last Admin: 08/25/18 06:19 Dose: 40 mg - Labs Labs: 08/25/18 05:30 08/25/18 05:30 PT 14.4 SECONDS (9.4-12.5) H 08/22/18 17:19 INR 1.30 08/22/18 17:19 APTT 29.7 Seconds (26.9-38.3) 08/22/18 17:19 - Constitutional Appears: Pleasant, Well appearing, Obese, Non-toxic, No Acute Distress - Head Exam Head Exam: NORMAL INSPECTION, NORMOCEPHALIC - Eye Exam Eye Exam: EOMI, Normal appearance - ENT Exam ENT Exam: Normal Exam, Normal Oropharynx - Neck Exam Neck Exam: Normal Inspection, Soft, Supple - Respiratory Exam Respiratory Exam: Clear to Ausculation Bilateral, NORMAL BREATHING PATTERN - Cardiovascular Exam Cardiovascular Exam: REGULAR RHYTHM, +S1, +S2 - GI/Abdominal Exam GI & Abdominal Exam: Soft. absent: Tenderness - Extremities Exam Extremities Exam: +1 Pitting Edema, no cyanosis - Neurological Exam Neurological Exam: Alert, Awake, Oriented x3 - Psychiatric Exam Psychiatric exam: Normal Affect, Normal Mood - Skin Skin Exam: Dry, Intact, Warm Assessment and Plan - Assessment and Plan (Free Text) Assessment: 53 year old female with a PMH of HTN who presented complaining of worsening shortness of breath for 3 months and was found to have acute HFrEF. Plan: 1. Acute HFrEF in setting of uncontrolled hypertension Likely 2/2 uncontrolled hypertension from antihypertensive medication noncompliance No history to determine chronology of cardiac function Echo reveals severely impaired systolic function, EF: 25%. LV mildly dilated. Mod concentric LVH Nuclear stress tests abnormal, partially reversible anteroseptal defect with moderate LV dysfunction with diffuse hypokinesis Plan for cardiac cath on 08/27 Cardio following, recs appreciated Cont Lasix 20mg IVP q12 Cont ASA 81mg PO qd Cont Plavix 75mg PO qd strict I/Os Daily weights 2. Hypertensive Urgency - resolved 2/2 noncompliance Cont Lisinopril 20mg PO daily Cont Hydralazine 25mg PO bid PRN Cont Carevedilol 12.5mg PO bid 3. LE edema 2/2 HFrEF Duplex negative for DVT Cont diuresis 4. Normocytic hypochromic anemia Unknown etiology Ordered iron studies and B12/folate as well as peripheral smear review No active bleeding Hemodynamically stable Will follow 5. T2DM HgbA1c is 6.6% Started accuchecks and RISS Lifestyle modifications Weight management Heart healthy/consistent carb diet Will follow BG 6. Hyperbilirubinemia - transient, resolved DVT PPx: heparin sc and SCDs Patient was seen and examined and case/management was discussed at length during and after rounds with attending physician. <Sue Grigsby R - Last Filed: 08/27/18 12:30> Objective - Vital Signs/Intake and Output Vital Signs (last 24 hours): Temp Pulse Resp BP Pulse Ox 97.8 F 90 18 132/89 99 08/27/18 06:00 08/27/18 10:09 08/27/18 06:00 08/27/18 10:09 08/27/18 06:00 Intake and Output: 08/27/18 08/27/18 06:59 18:59 Intake Total 1020 Output Total 1700 Balance -680 - Medications Medications: Current Medications Aspirin (Ecotrin) 81 mg PO DAILY [facility] Last Admin: 08/27/18 10:09 Dose: 81 mg Carvedilol (Coreg) 25 mg PO BID [facility] Last Admin: 08/27/18 10:09 Dose: 25 mg Clopidogrel Bisulfate (Plavix) 75 mg PO DAILY [facility] Last Admin: 08/27/18 10:09 Dose: 75 mg Ferrous Sulfate (Feosol) 324 mg PO TID [facility] Last Admin: 08/26/18 18:19 Dose: 324 mg Furosemide (Lasix) 20 mg IVP Q12 [facility] Last Admin: 08/26/18 22:31 Dose: Not Given Heparin Sodium (Porcine) (Heparin) 5,000 units SC Q8 [facility]; Protocol Last Admin: 08/27/18 05:10 Dose: 5,000 units Hydralazine HCl (Apresoline) 10 mg IVP Q6 PRN PRN Reason: Systolic Blood Pressure Last Admin: 08/23/18 02:45 Dose: 10 mg Hydralazine HCl (Apresoline) 25 mg PO BID [facility] Last Admin: 08/26/18 18:19 Dose: 25 mg Insulin Human Regular (Humulin R Low) 0 units SC ACHS [facility]; Protocol Last Admin: 08/27/18 08:14 Dose: Not Given Lisinopril (Zestril) 20 mg PO DAILY [facility] Last Admin: 08/26/18 09:03 Dose: 20 mg Pantoprazole Sodium (Protonix Ec Tab) 40 mg PO 0600 [facility] Last Admin: 08/27/18 05:02 Dose: Not Given - Labs Labs: 08/27/18 06:20 08/27/18 06:20 PT 14.4 SECONDS (9.4-12.5) H 08/22/18 17:19 INR 1.30 08/22/18 17:19 APTT 29.7 Seconds (26.9-38.3) 08/22/18 17:19 Attending/Attestation - Attestation I have personally seen and examined this patient.: Yes I have fully participated in the care of the patient.: Yes I have reviewed all pertinent clinical information, including history, physical exam and plan: Yes Notes (Text): Patient seen and examined by me with resident at 9:05AM on 08/25/18. Case including HPI, physical exam, and assessment and plan discussed with resident. Agree with above with following additions/corrections. Patient is a 53-year-old female past medical history significant for hypertension and noncompliance with medications that presented to the emergency room with shortness of breath and lower extremity edema worsening over the past 3 months. Patient states she feels ok.Still with some shortness of breath. Also still with lower extremity edema. Patient understands she has heart failure and abnormal stress test. Patient also understands the importance of compliance of medications and follow up. Patient denies chest pain or palpitations. No fevers or chills. No nausea, vomiting, or abdominal pain. No dysuria or difficulty urinating. No diarrhea or constipation. Physical exam: General: Awake and alert sitting up in bed in no acute distress HEENT: Normocephalic, atraumatic. Extraocular muscles intact, pupils equal and reactive, no scleral icterus. Oropharynx is pink and moist. No pharyngeal eryth sudhakar or exudate apreciated. Neck is supple. Cardiovascular: Regular rhythm. Normal S1 and S2. No murmurs, rubs, or gallops appreciated Pulmonary: Normal respiratory effort. Decreased breath sounds at bases. No rhonchi, rales, or wheezing appreciated. Gastrointestinal: Soft, nondistended. Nontender. Positive bowel sounds all 4 quadrants. No guarding. Musculoskeletal: Moves all extremities. No calf tenderness. Positive bilateral lower extremity pitting edema. Central nervous system: AAOx3,CN 2-12 grossly intact. Dermatologic: Skin warm and dry. Assessment and plan: Patient is a 53-year-old female past medical history significant for hypertension and noncompliance with medications that presented to the emergency room with shortness of breath and lower extremity edema worsening over the past 3 months. 1. Dyspnea likely secondary toacute systolic CHF exacerbation. S/P stress test which per radiologist showed abnormal SPECT myocardioal study, partially reversible anteroseptal defect suspicious for ischemia, moderated LV dysfunction with diffuse hypokinesis. Cardiology following, recommendations appreciated. For possible cardiac cath 08/27/18. Continue to monitor ins and outs. Continue IV Lasix. Continue ASA, lisinopril, and Coreg Plavix added. 2-D echo per welding equipment repairer shows left ventricle is mildly dilated, moderate concentric left ventricular hypertrophy, systolic function is severely impaired, ejection fraction 25%, right ventricular systolic function is normal, right ventricle is normal size, right atrium size is normal, left atrium is mildly dilated, no pericardial effusion, mitral regurgitation is moderate. Chest CT per radiologist showed cardiomegaly, no significant pulmonary artery dilatation, no definitive infiltrates, mild right and minimal left pleural effusions are noted as well as minimal subtle segmental dependent atelectasis bilaterally, mild bilateral adrenal hyperplasia not excluded. CTA chest per radiologist showed no evidence of central pulmonary embolus; prominent pulmonary trunk with a reflux of contrast material into the hepatic IVC; mild right and minor left sided effusions both of which are decreased in size from prior study; enlarged left adrenal gland. 2. Hypertension. Continue lisinopril, hydralazine, and Coreg. Continue IV Lasix. 3. Elevated T. Bili. No abdominal pain. Abdominal ultrasound per radiologist showed unremarkable abdominal ultrasound examination, small right pleural effusion noted. 4. Bilateral lower extremity edema. Likely secondary to acute systolic CHF. Lower extremity venous Dopplers negative for DVT. Continue IV Lasix. 5. Enlarged adrenal gland on CTA chest. Patient to have outpatient follow up for further work-up/imaging. 6. GI/DVT prophylaxis. Protonix/Heparin 7. Patient is a full code Case discussed in detail with the patient regarding current diagnosis and treatment plan. All questions answered.
[2018-08-25] MEDS ORDERED: Sodium Chloride 0.9% 250 ML IV SCH (13:15)
[2018-08-25] MEDS ORDERED: Iohexol 350 MG/100 ML VIAL ONE (13:32)
--- NOTE | 2018-08-25 14:47 | CT ---
Date of service: 08/25/2018 PROCEDURE: CT Chest with contrast (Pulmonary Angiogram) HISTORY: Rule out PE. COMPARISON: Comparison made with prior CT chest 08/23/2018. TECHNIQUE: Axial computed tomography images were obtained of the chest in the pulmonary arterial phase of enhancement. Coronal and sagittal reformatted images were created and reviewed. Intravenous contrast dose: Radiation dose: Total exam DLP = 482.91 mGy-cm. This CT exam was performed using one or more of the following dose reduction techniques: Automated exposure control, adjustment of the mA and/or kV according to patient size, and/or use of iterative reconstruction technique. FINDINGS: PULMONARY ARTERIES: The visualized pulmonary trunk, right and left main, lobar, segmental and proximal subsegmental branches of the pulmonary arteries are well opacified with no definitive evidence of central pulmonary embolus. Pulmonary trunk measures approximately 2.64 cm and there is also reflux of contrast material into the hepatic IVC; rule out underlying pulmonary arterial hypertension and/or right heart strain/dysfunction. AORTA: No acute findings. No thoracic aortic aneurysm. Ascending thoracic aorta measures approximately 2.44 cm. Descending thoracic aorta measures approximately 2.1 cm. No aortic atherosclerotic calcification or mural plaque present.. LUNGS: Unremarkable. No nodule, mass or pulmonary consolidation. PLEURAL SPACES: There is mild right-sided effusion and minor left effusion both of which have decreased in size. No evidence of pneumothorax. HEART: Heart remains enlarged. No cardiomegaly. No significant pericardial effusion. LYMPH NODES: No significant mediastinal or hilar lymphadenopathy. Trachea midline and patent with no large central endoluminal lesions. BONES, CHEST WALL: Mild multilevel degenerative spondylosis of the thoracic spine. OTHER FINDINGS: Liver appears prominent. There is a enlarged left adrenal gland with what appears to represent a discrete nodule measuring 18 mm. Consider follow-up noncontrast MRI of the adrenal glands. IMPRESSION: No evidence of central pulmonary embolus.. Prominent pulmonary trunk with a reflux of contrast material into the hepatic IVC; rule out pulmonary arterial hypertension and right heart strain/dysfunction. Mild right and minor left-sided effusions both of which have decreased in size from prior study. There is a enlarged left adrenal gland with what appears to represent a discrete nodule measuring 18 mm. Consider follow-up noncontrast MRI of the adrenal glands. .
[2018-08-25] MEDS: Insulin Reg-LOW-Coverage SC SCH ×2 (16:55→21:43)
[2018-08-26] MEDS: Pantoprazole 40 mg EC Tab PO SCH (05:29)
[2018-08-26 06:58] LABS: IRON 16 ug/dL (45-180)
[2018-08-26 07:07] LABS: % IRON SATURATION 4 % (20-55); TOTAL IRON BINDING CAPACITY 395 ug/dL (265-497)
[2018-08-26 07:10] LABS: BASO # 0.01 K/mm3 (0.0-2.0); BASO % 0.3 % (0.0-3.0); EOS # 0.2 (0.0-0.7); HEMOGLOBIN 9.4 g/dL (12.0-16.0); LYMPH # 1.3 (1.2-3.4); LYMPH % 32.3 % (22.0-35.0); MEAN CELL VOLUME 82.7 fl (80.0-105.0); MEAN CORPUSCULAR HEMOGLOBIN 25.5 pg (25.0-35.0); MEAN CORPUSCULAR HGB CONC 30.8 g/dl (31.0-37.0); MEAN PLATELET VOLUME 10.9 fl (7.0-11.0); MONO # 0.6 (0.1-0.6); MONO % 15.5 % (1.0-6.0); PLATELET COUNT 229 10^3/uL (120.0-450.0); RBC 3.69 10^6/uL (3.5-6.1)
[2018-08-26 07:46] LABS: ALBUMIN 3.1 g/dL (3.0-4.8); ALT/SGPT 42 U/L (7-56); AST/SGOT 38 U/L (14-36); BLOOD UREA NITROGEN 17 mg/dL (7-21); CALCIUM 8.5 mg/dL (8.4-10.5); GFR NON-AFRICAN AMERICAN 58
[2018-08-26] MEDS: Insulin Reg-LOW-Coverage SC SCH ×2 (09:05→21:55)
--- NOTE | 2018-08-26 10:54 | CP.PCM.PN ---
<Edwin Peñaloza - Last Filed: 08/26/18 12:35> Subjective - Date & Time of Evaluation Date of Evaluation: 08/26/18 Time of Evaluation: 10:54 - Subjective Subjective: Edwin Peñaloza D.O. PGY-3, Internal Medicine Resident, Hospitalists Progress Note 53 year old female with a PMH of HTN who presented complaining of worsening shortness of breath for 3 months and was found to have acute HFrEF. Patient was seen and examined at bedside. States that still at times has some SOB. No cough or sputum production. No acute overnight events noted. Objective - Vital Signs/Intake and Output Vital Signs (last 24 hours): Temp Pulse Resp BP Pulse Ox 97.3 F L 87 18 115/76 97 08/26/18 05:57 08/26/18 09:03 08/26/18 05:57 08/26/18 09:03 08/26/18 05:57 Intake and Output: 08/26/18 08/26/18 06:59 18:59 Intake Total 1080 Output Total 2750 Balance -1670 - Medications Medications: Current Medications Aspirin (Ecotrin) 81 mg PO DAILY [facility] Last Admin: 08/26/18 09:03 Dose: 81 mg Carvedilol (Coreg) 25 mg PO BID [facility] Last Admin: 08/26/18 09:03 Dose: 25 mg Clopidogrel Bisulfate (Plavix) 75 mg PO DAILY [facility] Last Admin: 08/26/18 09:03 Dose: 75 mg Ferrous Sulfate (Feosol) 324 mg PO TID [facility] Last Admin: 08/26/18 09:03 Dose: 324 mg Furosemide (Lasix) 20 mg IVP Q12 [facility] Last Admin: 08/26/18 09:03 Dose: 20 mg Heparin Sodium (Porcine) (Heparin) 5,000 units SC Q8 [facility]; Protocol Last Admin: 08/26/18 05:29 Dose: 5,000 units Hydralazine HCl (Apresoline) 10 mg IVP Q6 PRN PRN Reason: Systolic Blood Pressure Last Admin: 08/23/18 02:45 Dose: 10 mg Hydralazine HCl (Apresoline) 25 mg PO BID [facility] Last Admin: 08/26/18 09:02 Dose: 25 mg Insulin Human Regular (Humulin R Low) 0 units SC ACHS [facility]; Protocol Last Admin: 08/26/18 09:05 Dose: Not Given Lisinopril (Zestril) 20 mg PO DAILY [facility] Last Admin: 08/26/18 09:03 Dose: 20 mg Pantoprazole Sodium (Protonix Ec Tab) 40 mg PO 0600 [facility] Last Admin: 08/26/18 05:29 Dose: 40 mg - Labs Labs: 08/26/18 05:00 08/26/18 05:00 PT 14.4 SECONDS (9.4-12.5) H 08/22/18 17:19 INR 1.30 08/22/18 17:19 APTT 29.7 Seconds (26.9-38.3) 08/22/18 17:19 - Constitutional Appears: Pleasant, Well appearing, Obese, Non-toxic, No Acute Distress - Head Exam Head Exam: NORMAL INSPECTION, NORMOCEPHALIC - Eye Exam Eye Exam: EOMI, Normal appearance - ENT Exam ENT Exam: Normal Exam, Normal Oropharynx - Neck Exam Neck Exam: Normal Inspection, Soft, Supple - Respiratory Exam Respiratory Exam: Clear to Ausculation Bilateral, NORMAL BREATHING PATTERN - Cardiovascular Exam Cardiovascular Exam: REGULAR RHYTHM, +S1, +S2 - GI/Abdominal Exam GI & Abdominal Exam: Soft. absent: Tenderness - Extremities Exam Extremities Exam: +1 Pitting Edema, no cyanosis - Neurological Exam Neurological Exam: Alert, Awake, Oriented x3 - Psychiatric Exam Psychiatric exam: Normal Affect, Normal Mood - Skin Skin Exam: Dry, Intact, Warm Assessment and Plan - Assessment and Plan (Free Text) Assessment: 53 year old female with a PMH of HTN who presented complaining of worsening shortness of breath for 3 months and was found to have acute HFrEF. Plan: 1. Acute HFrEF in setting of uncontrolled hypertension Likely 2/2 uncontrolled hypertension from antihypertensive medication noncompliance Echo reveals severely impaired systolic function, EF: 25%. LV mildly dilated. Mod concentric LVH Nuclear stress tests abnormal, partially reversible anteroseptal defect with moderate LV dysfunction with diffuse hypokinesis Cardio following, recs appreciated Plan for cardiac cath on 08/27 Ct chest w/ contrast negative for PE Cont Lasix 20mg IVP q12 Cont ASA 81mg PO qd Cont Plavix 75mg PO qd Strict I/Os - has been maintaining negative fluid balance Daily weights 2. Hypertensive Urgency - resolved 2/2 noncompliance, education provided Cont Lisinopril 20mg PO daily Cont Hydralazine 25mg PO bid MARY and 10mg IVP q6h PRN Cont Carevedilol 25mg PO bid 3. LE edema 2/2 HFrEF Duplex negative for DVT Cont diuresis w/ lasix 4. Normocytic hypochromic anemia Iron studies show iron deficiency Started ferrous sulfate B12, folate, and peripheral smear pending No active bleeding Hemodynamically stable 5. T2DM Cont accuchecks and RISS Educated about lifestyle modifications and weight loss Cont heart healthy/consistent carb diet 6. Hyperbilirubinemia - transient, resolved DVT PPx: heparin sc and SCDs Patient was seen and examined and case/management was discussed at length during and after rounds with attending physician. <Sue Grigsby R - Last Filed: 08/27/18 12:38> Objective - Vital Signs/Intake and Output Vital Signs (last 24 hours): Temp Pulse Resp BP Pulse Ox 97.8 F 90 18 132/89 99 08/27/18 06:00 08/27/18 10:09 08/27/18 06:00 08/27/18 10:09 08/27/18 06:00 Intake and Output: 08/27/18 08/27/18 06:59 18:59 Intake Total 1020 Output Total 1700 Balance -680 - Medications Medications: Current Medications Aspirin (Ecotrin) 81 mg PO DAILY [facility] Last Admin: 08/27/18 10:09 Dose: 81 mg Carvedilol (Coreg) 25 mg PO BID [facility] Last Admin: 08/27/18 10:09 Dose: 25 mg Clopidogrel Bisulfate (Plavix) 75 mg PO DAILY [facility] Last Admin: 08/27/18 10:09 Dose: 75 mg Ferrous Sulfate (Feosol) 324 mg PO TID [facility] Last Admin: 08/26/18 18:19 Dose: 324 mg Furosemide (Lasix) 20 mg IVP Q12 [facility] Last Admin: 08/26/18 22:31 Dose: Not Given Heparin Sodium (Porcine) (Heparin) 5,000 units SC Q8 [facility]; Protocol Last Admin: 08/27/18 05:10 Dose: 5,000 units Hydralazine HCl (Apresoline) 10 mg IVP Q6 PRN PRN Reason: Systolic Blood Pressure Last Admin: 08/23/18 02:45 Dose: 10 mg Hydralazine HCl (Apresoline) 25 mg PO BID [facility] Last Admin: 08/26/18 18:19 Dose: 25 mg Insulin Human Regular (Humulin R Low) 0 units SC ACHS [facility]; Protocol Last Admin: 08/27/18 08:14 Dose: Not Given Lisinopril (Zestril) 20 mg PO DAILY [facility] Last Admin: 08/26/18 09:03 Dose: 20 mg Pantoprazole Sodium (Protonix Ec Tab) 40 mg PO 0600 [facility] Last Admin: 08/27/18 05:02 Dose: Not Given - Labs Labs: 08/27/18 06:20 08/27/18 06:20 PT 14.4 SECONDS (9.4-12.5) H 08/22/18 17: INR 1.30 08/22/18 17: APTT 29.7 Seconds (26.9-38.3) 08/22/18 17:19 Attending/Attestation - Attestation I have personally seen and examined this patient.: Yes I have fully participated in the care of the patient.: Yes I have reviewed all pertinent clinical information, including history, physical exam and plan: Yes Notes (Text): Patient seen and examined by me with resident at 8:30AM on 08/26/18. Case including HPI, physical exam, and assessment and plan discussed with resident. Agree with above with following additions/corrections. Patient is a 53-year-old female past medical history significant for hypertension and noncompliance with medications that presented to the emergency room with shortness of breath and lower extremity edema worsening over the past 3 months. Patient states she is feeling ok. States her shortness of breath has improved but feels her lower extremity edema is not getting better. Patient denies chest pain or palpitations. No fevers or chills. No nausea, vomiting, or abdominal pain. No dysuria or difficulty urinating. No diarrhea or constipation. Physical exam: General: Awake and alert sitting up in bed in no acute distress HEENT: Normocephalic, atraumatic. Extraocular muscles intact, pupils equal and reactive, no scleral icterus. Oropharynx is pink and moist. No pharyngeal erythema or exudate apreciated. Neck is supple. Cardiovascular: Regular rhythm. Normal S1 and S2. No murmurs, rubs, or gallops appreciated Pulmonary: Normal respiratory effort. Decreased breath sounds at bases. No rhonchi, rales, or wheezing appreciated. Gastrointestinal: Soft, nondistended. Nontender. Positive bowel sounds all 4 quadrants. No guarding. Musculoskeletal: Moves all extremities. No calf tenderness. Positive bilateral lower extremity pitting edema. Central nervous system: AAOx3,CN 2-12 grossly intact. Dermatologic: Skin warm and dry. Assessment and plan: Patient is a 53-year-old female past medical history significant for hypertension and noncompliance with medications that presented to the emergency room with shortness of breath and lower extremity edema worsening over the past 3 months. 1. Dyspnea secondary toacute systolic CHF exacerbation. S/P stress test which per radiologist showed abnormal SPECT myocardioal study, partially reversible anteroseptal defect suspicious for ischemia, moderated LV dysfunction with diffuse hypokinesis. Cardiology following, recommendations appreciated. For possible cardiac cath 08/27/18. Continue to monitor ins and outs. Continue IV Lasix. Continue ASA, lisinopril, and Coreg. Continue Plavix. 2-D echo per engine generator assembler shows left ventricle is mildly dilated, moderate concentric left ventricular hypertrophy, systolic function is severely impaired, ejection fraction 25%, right ventricular systolic function is normal, right ventricle is normal size, right atrium size is normal, left atrium is mildly dilated, no pericardial effusion, mitral regurgitation is moderate. Chest CT per radiologist showed cardiomegaly, no significant pulmonary artery dilatation, no definitive infiltrates, mild right and minimal left pleural effusions are noted as well as minimal subtle segmental dependent atelectasis bilaterally, mild bilateral adrenal hyperplasia not excluded. CTA chest per radiologist showed no evidence of central pulmonary embolus; prominent pulmonary trunk with a reflux of contrast material into the hepatic IVC; mild right and minor left sided effusions both of which are decreased in size from prior study; enlarged left adrenal gland. 2. Hypertension. Continue lisinopril and Coreg. Continue IV Lasix. Continue hydralazine prn 3. Elevated T. Bili. No abdominal pain. Abdominal ultrasound per radiologist showed unremarkable abdominal ultrasound examination, small right pleural effusion noted. 4. Bilateral lower extremity edema. Likely secondary to acute systolic CHF. Lower extremity venous Dopplers negative for DVT. Continue IV Lasix. 5. Enlarged adrenal gland on CTA chest. Patient to have outpatient follow up for further work-up/imaging. 6. GI/DVT prophylaxis. Protonix/Heparin 7. Patient is a full code Case discussed in detail with the patient regarding current diagnosis and treatment plan. All questions answered.
[2018-08-26 17:35] LABS: FERRITIN 19.9 ng/mL
[2018-08-26 18:05] LABS: FOLATE 7.2 ng/mL
[2018-08-27] MEDS: Pantoprazole 40 mg EC Tab PO SCH (05:02)
[2018-08-27 06:08] VITALS: O2SAT 99
[2018-08-27 06:39] LABS: BASO # 0.02 K/mm3 (0.0-2.0); BASO % 0.4 % (0.0-3.0); EOS # 0.3 (0.0-0.7); EOS % 5.5 % (1.5-5.0); HEMOGLOBIN 9.7 g/dL (12.0-16.0); LYMPH # 1.2 (1.2-3.4); LYMPH % 24.9 % (22.0-35.0); MEAN CELL VOLUME 82.5 fl (80.0-105.0); MEAN CORPUSCULAR HEMOGLOBIN 25.7 pg (25.0-35.0); MEAN CORPUSCULAR HGB CONC 31.1 g/dl (31.0-37.0); MEAN PLATELET VOLUME 11.1 fl (7.0-11.0); MONO # 0.9 (0.1-0.6); MONO % 17.8 % (1.0-6.0); RBC 3.78 10^6/uL (3.5-6.1); RED CELL DISTRIBUTION WIDTH 15.7 % (11.5-14.5); WHITE BLOOD COUNT 4.9 10^3/uL (4.5-11.0)
[2018-08-27 07:19] LABS: ALBUMIN 3.3 g/dL (3.0-4.8); ALT/SGPT 58 U/L (7-56); AST/SGOT 62 U/L (14-36); BLOOD UREA NITROGEN 17 mg/dL (7-21); CALCIUM 8.7 mg/dL (8.4-10.5); GFR NON-AFRICAN AMERICAN 58
--- NOTE | 2018-08-27 07:39 | CP.PCM.PN ---
Subjective - Date & Time of Evaluation Date of Evaluation: 08/27/18 Time of Evaluation: 06:25 - Subjective Subjective: Sitting side of bed, awake, alert, no distress, denies shortness of breath Reason for consultation: Cardiac evaluation of shortness of breath, new onset congestive heart failure. History of hypertension Seen and examined by me and Dr. Roe Objective - Vital Signs/Intake and Output Vital Signs (last 24 hours): Temp Pulse Resp BP Pulse Ox 97.8 F 84 18 117/76 99 08/27/18 06:00 08/27/18 06:00 08/27/18 06:00 08/27/18 06:00 08/27/18 06:00 Intake and Output: 08/27/18 08/27/18 06:59 18:59 Intake Total 1020 Output Total 1700 Balance -680 - Medications Medications: Current Medications Aspirin (Ecotrin) 81 mg PO DAILY [facility] Last Admin: 08/26/18 09:03 Dose: 81 mg Carvedilol (Coreg) 25 mg PO BID [facility] Last Admin: 08/26/18 18:19 Dose: 25 mg Clopidogrel Bisulfate (Plavix) 75 mg PO DAILY [facility] Last Admin: 08/26/18 09:03 Dose: 75 mg Ferrous Sulfate (Feosol) 324 mg PO TID [facility] Last Admin: 08/26/18 18:19 Dose: 324 mg Furosemide (Lasix) 20 mg IVP Q12 [facility] Last Admin: 08/26/18 22:31 Dose: Not Given Heparin Sodium (Porcine) (Heparin) 5,000 units SC Q8 [facility]; Protocol Last Admin: 08/27/18 05:10 Dose: 5,000 units Hydralazine HCl (Apresoline) 10 mg IVP Q6 PRN PRN Reason: Systolic Blood Pressure Last Admin: 08/23/18 02:45 Dose: 10 mg Hydralazine HCl (Apresoline) 25 mg PO BID [facility] Last Admin: 08/26/18 18:19 Dose: 25 mg Insulin Human Regular (Humulin R Low) 0 units SC ACHS [facility]; Protocol Last Admin: 08/26/18 21:55 Dose: Not Given Lisinopril (Zestril) 20 mg PO DAILY [facility] Last Admin: 08/26/18 09:03 Dose: 20 mg Pantoprazole Sodium (Protonix Ec Tab) 40 mg PO 0600 [facility] Last Admin: 08/27/18 05:02 Dose: Not Given - Labs Labs: 08/27/18 06:20 08/27/18 06:20 PT 14.4 SECONDS (9.4-12.5) H 08/22/18 17:19 INR 1.30 08/22/18 17:19 APTT 29.7 Seconds (26.9-38.3) 08/22/18 17:19 - Constitutional Appears: Non-toxic, No Acute Distress - Head Exam Head Exam: NORMAL INSPECTION, NORMOCEPHALIC - Eye Exam Eye Exam: Normal appearance Pupil Exam: NORMAL ACCOMODATION - ENT Exam ENT Exam: Mucous Membranes Moist, Normal Exam - Respiratory Exam Respiratory Exam: Decreased Breath Sounds, Clear to Ausculation Bilateral, NORMAL BREATHING PATTERN - Cardiovascular Exam Cardiovascular Exam: REGULAR RHYTHM, +S1, +S2 Additional comments: Telemetry NSR 70's - GI/Abdominal Exam GI & Abdominal Exam: Soft, Normal Bowel Sounds - Extremities Exam Extremities Exam: Full ROM Additional comments: 3+ edema - Neurological Exam Neurological Exam: Alert, Awake, Oriented x3 - Psychiatric Exam Psychiatric exam: Normal Affect, Normal Mood - Skin Skin Exam: Dry, Normal Color, Warm Assessment and Plan - Assessment and Plan (Free Text) Assessment: A 53 year old female who came in to the ER due to progressive shortness of breath for the past 3 months. She claimed to have shortness of breath when walking half a block. She sleeps with 2 pillows. She can not lay flat due to shortness of breath. Denies chest pain. History of hypertension but not comp liant with medications due to side effects. Troponin normal x 3. Elevated BNP. Chest X ray showed no pulmonary vascular congestion.Will order echo to evaluate LV function, Stress test for ischemia, CT of chest - cardiomegaly, no infiltrates, mild pleural effusion. Doppler studies of lower extremities pending result. Uncontrolled hypertension. No cardiac work up done at [facility] [place]. Leg swelling. Echo done, mildly dilated ventricles, moderate concentric LV hypertrophy, severely impaired systolic function LVEF 25%, RV systolic function is normal,moderate MR,mild TR. No pericardial effusion. New onset systolic dysfunction congestive heart failure. Stress test done. LVEF 39%, abnormal result,partially reversible anteroseptal defect suspicious of ischemia. Moderate LV dysfunction and diffuse hypokinesis. For cardiac cath today Plan: Abnormal stress test, For cardiac cath today No distress, denies shortness of breath Controlled blood pressure Controlled heart rate On Zestril 20 mg daily,Lasix 20 mg daily,Hydralazine 25 mg BID, Lopressor 25 mg BID, Heparin 5000 units every 8 hours Continue current treatment Continue current medications Lifestyle modification Weight reduction Will follow up Plan and treatment discussed with Dr. Roe
[2018-08-27] MEDS: Insulin Reg-LOW-Coverage SC SCH ×4 (08:14→22:15)
[2018-08-27] MEDS ORDERED: Phenylephrine 10 mg/ml Inj ONE (12:18)
[2018-08-27] MEDS ORDERED: Lidocaine 2% Inj (20ml) ONE (12:19)
[2018-08-27] MEDS ORDERED: Verapamil 2 ML ONE (12:20)
[2018-08-27] MEDS ORDERED: Iohexol 350mgl/ml 50 ML ONE (12:20)
[2018-08-27] MEDS ORDERED: Iodixanol 320 MG/ML 100 ML BOTTLE IV ONE (12:20)
[2018-08-27] MEDS ORDERED: Iodixanol 320 MG/ML 200 ML BOTTLE IV ONE (12:20)
[2018-08-27] MEDS ORDERED: Nitroglycerin 50mg in D5W 50 MG/250 ML BOTTLE IV ONE (12:21)
[2018-08-27] MEDS ORDERED: Midazolam 2 MG/2 ML VIAL ONE (12:50)
[2018-08-27] MEDS ORDERED: Bacitracin 500 Units/gm Oint Foilpak UD TOP ONE (13:20)
[2018-08-27] MEDS ORDERED: Sodium Chloride 0.9% 1,000 ML IV SCH (13:30)
--- NOTE | 2018-08-27 16:01 | CPOSTOP ---
DATE: 08/27/2018 PHYSICIAN: Gunnar Roe MD STAFF DEVELOPER: AMARA Hale. TYPE OF ANESTHESIA: Moderate conscious sedation. Total 1 mg of Versed and 50 of fentanyl given. PRE-PROCEDURE DIAGNOSES: Unstable angina, new onset of congestive heart failure, abnormal stress test. PROCEDURE PERFORMED: Left heart catheterization. FINDINGS: Normal coronaries, cardiomyopathy non-ischemic. FINAL DIAGNOSIS: Non-ischemic cardiomyopathy. POST PROCEDURE CONDITION: The patient's condition is stable. VASCULAR ACCESS SITE: Left radial. CLOSURE DEVICE: TR Band. TOTAL RADIATION DOSE: 3406.97. TOTAL FLUORO TIME: 1.4 minutes. Gunnar Roe MD
--- NOTE | 2018-08-27 17:24 | CP.PCM.PN ---
<Eddy Sánchez - Last Filed: 08/27/18 17:09> Subjective - Date & Time of Evaluation Date of Evaluation: 08/27/18 Time of Evaluation: 17:09 - Subjective Subjective: INTERNAL MEDICINE PROGRESS NOTE FOR DR. LIBAN Sánchez PGY1 Pt seen and examined at bedside this am. Pt to undergo cardiac cath this am. She has been NPO. She denies acute complaints Objective - Vital Signs/Intake and Output Vital Signs (last 24 hours): Temp Pulse Resp BP Pulse Ox 97.8 F 90 18 132/89 99 08/27/18 06:00 08/27/18 10:09 08/27/18 06:00 08/27/18 10:09 08/27/18 06:00 Intake and Output: 08/27/18 08/27/18 06:59 18:59 Intake Total 1020 Output Total 1700 Balance -680 - Medications Medications: Current Medications Aspirin (Ecotrin) 81 mg PO DAILY [facility] Last Admin: 08/27/18 10:09 Dose: 81 mg Carvedilol (Coreg) 25 mg PO BID [facility] Last Admin: 08/27/18 10:09 Dose: 25 mg Ferrous Sulfate (Feosol) 324 mg PO TID [facility] Last Admin: 08/27/18 15:24 Dose: 324 mg Furosemide (Lasix) 20 mg IVP Q12 [facility] Stop: 08/27/18 23:59 Last Admin: 08/26/18 22:31 Dose: Not Given Furosemide (Lasix) 40 mg PO DAILY [facility] Heparin Sodium (Porcine) (Heparin) 5,000 units SC Q8 [facility]; Protocol Last Admin: 08/27/18 05:10 Dose: 5,000 units Hydralazine HCl (Apresoline) 10 mg IVP Q6 PRN PRN Reason: Systolic Blood Pressure Last Admin: 08/23/18 02:45 Dose: 10 mg Hydralazine HCl (Apresoline) 25 mg PO BID [facility] Last Admin: 08/27/18 13:38 Dose: Not Given Insulin Human Regular (Humulin R Low) 0 units SC ACHS [facility]; Protocol Last Admin: 08/27/18 13:39 Dose: Not Given Lisinopril (Zestril) 20 mg PO DAILY [facility] Last Admin: 08/26/18 09:03 Dose: 20 mg Pantoprazole Sodium (Protonix Ec Tab) 40 mg PO 0600 [facility] Last Admin: 08/27/18 05:02 Dose: Not Given Spironolactone (Aldactone) 25 mg PO DAILY [facility] - Labs Labs: 08/27/18 06:20 08/27/18 06:20 PT 14.4 SECONDS (9.4-12.5) H 08/22/18 17:19 INR 1.30 08/22/18 17:19 APTT 29.7 Seconds (26.9-38.3) 08/22/18 17:19 - Constitutional Appears: Well, Non-toxic, No Acute Distress - Head Exam Head Exam: NORMAL INSPECTION, NORMOCEPHALIC - Eye Exam Eye Exam: EOMI, Normal appearance - ENT Exam ENT Exam: Normal Exam - Neck Exam Neck Exam: Normal Inspection - Respiratory Exam Respiratory Exam: Clear to Ausculation Bilateral, NORMAL BREATHING PATTERN - Cardiovascular Exam Cardiovascular Exam: REGULAR RHYTHM, +S1, +S2 - GI/Abdominal Exam GI & Abdominal Exam: Soft. absent: Tenderness Additional comments: obese - Extremities Exam Extremities Exam: Pedal Edema. absent: Calf Tenderness - Back Exam Back Exam: NORMAL INSPECTION - Neurological Exam Neurological Exam: Alert, Awake, Oriented x3 - Psychiatric Exam Psychiatric exam: Normal Affect, Normal Mood - Skin Skin Exam: Dry, Intact, Warm Assessment and Plan - Assessment and Plan (Free Text) Assessment: 53 year old female with a PMH of HTN who presented complaining of worsening shortness of breath for 3 months and was found to have acute HFrEF. Plan: Acute HFrEF in setting of uncontrolled hypertension Likely 2/2 uncontrolled hypertension from antihypertensive medication noncompliance Echo reveals severely impaired systolic function, EF: 25%. LV mildly dilated. Mod concentric LVH Nuclear stress tests abnormal, partially reversible anteroseptal defect with moderate LV dysfunction with diffuse hypokinesis Ct chest w/ contrast negative for PE Pt to undergo cardiac cath today. Cardio following, recs appreciated Continue Lasix 40mg po daily, continue todays 20mg IVP Cont ASA 81mg PO qd d/c plavix Strict I/Os - has been maintaining negative fluid balance Daily weights Hypertensive Urgency - resolved 2/2 noncompliance, education provided Continue Lisinopril 20mg PO daily Continue Hydralazine 25mg PO bid [facility] and 10mg IVP q6h PRN Continue Carevedilol 25mg PO bid Continue spironolactone 25mg daily LE edema 2/2 HFrEF Duplex negative for DVT Cont diuresis w/ lasix Normocytic hypochromic anemia Iron studies show iron deficiency Started ferrous sulfate B12/Folate wnl DVT PPx: heparin sc, SCDs/pantoprazole Case seen, examined and discussed with attending physician, Dr. Liban Sánchez PGY1 <[place] - Last Filed: 08/29/18 14:25> Objective - Vital Signs/Intake and Output Vital Signs (last 24 hours): Temp Pulse Resp BP Pulse Ox 98 F 88 20 113/72 99 08/28/18 16:52 08/28/18 17:48 08/28/18 16:52 08/28/18 17:48 08/28/18 06:00 - Labs Labs: 08/28/18 07:00 08/28/18 07:00 PT 14.4 SECONDS (9.4-12.5) H 08/22/18 17:19 INR 1.30 08/22/18 17:19 APTT 29.7 Seconds (26.9-38.3) 08/22/18 17:19 Attending/Attestation - Attestation I have personally seen and examined this patient.: Yes I have fully participated in the care of the patient.: Yes I have reviewed all pertinent clinical information, including history, physical exam and plan: Yes Notes (Text): 08/29/18 14:22 Attending note; Patient seen and examined with resident. Patient is alert and awake. Denies any chest pain, shortness of breath. Going for cardiac cath today. Case discussed with deputy editor in chief in detail. Patient is a 53-year-old female past medical history significant for hypertension and noncompliance with medications that presented to the emergency room with shortness of breath and lower extremity edema worsening over the past 3 months. 1. Dyspnea secondary toacute systolic CHF exacerbation. S/P stress test showed abnormal SPECT myocardioal study, partially reversible anteroseptal defect suspicious for ischemia, moderated LV dysfunction with diffuse hypokinesis. Going for cardiac cath today . Continue to monitor ins and outs. Continue IV Lasix. Continue ASA, lisinopril, and Coreg. 2-D echo shows left ventricle is mildly dilated, moderate concentric left ventricular hypertrophy, systolic function is severely impaired, ejection fraction 25%, right ventricular systolic function is normal, right ventricle is normal size, right atrium size is normal, left atrium is mildly dilated, no pericardial effusion, mitral regurgitation is moderate. Chest CT showed cardiomegaly, no significant pulmonary artery dilatation, no definitive infiltrates, mild right and minimal left pleural effusions are noted as well as minimal subtle segmental dependent atelectasis bilaterally, mild bilateral adrenal hyperplasia not excluded. CTA chest showed no evidence of central pulmonary embolus; prominent pulmonary trunk with a reflux of contrast material into the hepatic IVC; mild right and minor left sided effusions both of which are decreased in size from prior study; enlarged left adrenal gland. 2. Hypertension. Continue lisinopril and Coreg. Continue IV Lasix. Continue hydralazine prn 3. Elevated T. Bili. Currently normalized; possibly secondary to passive liver congestion due to cardiomyopathy and CHF. No abdominal pain. Abdominal ultrasound showed unremarkable abdominal ultrasound examination, small right pleural effusion noted. 4. Bilateral lower extremity edema. Lower extremity venous Dopplers negative for DVT. Continue IV Lasix. 5. Enlarged adrenal gland on CTA chest. Patient to have outpatient follow up for further work-up/imaging as outpatient. Patient will be referred to [facility] upon discharge. Patient needs close follow-up with cardiology. Advised to complete jaylon Paperwork.
--- NOTE | 2018-08-27 19:06 | CARD ---
APPROVED REPORT Date of service: 08/27/2018 Procedure(s) performed: Left Heart Catheterization HISTORY The patient is a 53 year-old female with a history of : most recent EF: 39%. (EF Method: RADIONUCLIDE), hypertension , Admitted weith new onset of CHF and abnormal stress test anteroseptal Ischemia, and severly decreased LV Fx by echo.. INDICATION The indication(s) include : positive stress test, chest pain, dyspnea. CASE TECHNIQUE The patient was brought urgently to the Cardiac Catheterization Laboratory in a fasting state and was prepped and draped in a sterile manner. The left wrist was infiltrated with 2% Lidocaine subcutaneous anesthesia. A 6FR GLIDESHEATH ACCESS KIT sheath was inserted into the left radial artery without difficulty. Coronary angiography was performed using coronary diagnostic catheters. The left coronary system was accessed and visualized with a Diagnostic,5F JL 4 CATH DXT 100 CM catheter. The right coronary system was accessed and visualized with a Diagnostic ,5F JL 4 CATH DXT 100 CM catheter. The left ventricle was accessed and visualized with a 5F PIGTAIL 145 CATH DXT 110 CM catheter. Left ventricular/Aortic Valve gradient assessed on pullback. Left ventriculogram was performed in LA projection. Closure device was deployed with a Fr TR Band (Regular) without any complications. The patient tolerated the procedure well and there were no complications associated with the procedure. Vessel Analysis The patient's coronary anatomy is co-dominant. The left main coronary artery is a large size vessel without significant stenosis. The left main bifurcates to the left anterior descending and circumflex. The left anterior descending artery is a large size vessel with intimal irregularities and without significant stenosis. The first diagonal branch is a medium size vessel without significant stenosis. The circumflex artery is a large size vessel with intimal irregularities. The first obtuse marginal branch is a small size vessel without significant stenosis. The second obtuse marginal branch is a medium size vessel without stenosis. The left posterior descending artery is a medium size vessel without significant stenosis. The right coronary artery is a large size vessel with intimal irregularities and without significant stenosis. The right posterior descending artery is a medium size vessel with intimal irregularities and without significant stenosis. The right posterolateral branch is a mediummedium size vessel with intimal irregularities and without significant stenosis. Left Ventricle The left ventricle is enlarged in size with moderately decreased contractility. Non-Ischemic cardiomyopathy. The left ventricular ejection fraction is estimated to be 35-40%. The left ventricular end diastolic pressure is 20-22 mmHg. There was no gradient across the aortic valve upon pullback. Conclusion Normal coronaries Non Ischemic CMP, EF-35-40%, EDP-20-22 mmof hg. Recommendations Aggressive Medical TherapyCardiac Risk Reduction Program Weight Loss Reduction Program GOKUL, Coreg, Diuretic, spironactone and if pt can afford consider Enteresto. Re-assess LV Fx in 3-6 months, if remains less than 35% consider AICD. Dr. Sue Grigsby DO.
[2018-08-28 02:25] LABS: MCH 26.2 pg (27.0-33.0); MCV 84.4 fL (80.0-100.0)
--- NOTE | 2018-08-28 06:39 | CP.PCM.PN ---
Subjective - Date & Time of Evaluation Date of Evaluation: 08/28/18 Time of Evaluation: 06:20 - Subjective Subjective: Ambulating to bathroom, awake, alert, no distress, denies shortness of breath Reason for consultation: Cardiac evaluation of shortness of breath, new onset congestive heart failure. History of hypertension Seen and examined by me and Dr. Roe Objective - Vital Signs/Intake and Output Vital Signs (last 24 hours): Temp Pulse Resp BP Pulse Ox 98.5 F 96 H 18 126/80 99 08/27/18 18:18 08/28/18 05:46 08/27/18 18:18 08/27/18 19:13 08/27/18 06:00 Intake and Output: 08/27/18 08/28/18 18:59 06:59 Intake Total 1380 660 Output Total 701 1 Balance 679 659 - Medications Medications: Current Medications Aspirin (Ecotrin) 81 mg PO DAILY [facility] Last Admin: 08/27/18 10:09 Dose: 81 mg Carvedilol (Coreg) 25 mg PO BID [facility] Last Admin: 08/27/18 18:28 Dose: Not Given Ferrous Sulfate (Feosol) 324 mg PO TID [facility] Last Admin: 08/27/18 15:24 Dose: 324 mg Furosemide (Lasix) 40 mg PO DAILY [facility] Heparin Sodium (Porcine) (Heparin) 5,000 units SC Q8 [facility]; Protocol Last Admin: 08/27/18 05:10 Dose: 5,000 units Hydralazine HCl (Apresoline) 10 mg IVP Q6 PRN PRN Reason: Systolic Blood Pressure Last Admin: 08/23/18 02:45 Dose: 10 mg Hydralazine HCl (Apresoline) 25 mg PO BID [facility] Last Admin: 08/27/18 18:27 Dose: Not Given Insulin Human Regular (Humulin R Low) 0 units SC ACHS [facility]; Protocol Last Admin: 08/27/18 22:15 Dose: Not Given Lisinopril (Zestril) 20 mg PO DAILY [facility] Last Admin: 08/27/18 16:20 Dose: Not Given Pantoprazole Sodium (Protonix Ec Tab) 40 mg PO 0600 [facility] Last Admin: 08/27/18 05:02 Dose: Not Given Spironolactone (Aldactone) 25 mg PO DAILY [facility] - Labs Labs: 08/27/18 06:20 08/27/18 06:20 PT 14.4 SECONDS (9.4-12.5) H 08/22/18 17:19 INR 1.30 08/22/18 17:19 APTT 29.7 Seconds (26.9-38.3) 08/22/18 17:19 - Constitutional Appears: Non-toxic, No Acute Distress - Head Exam Head Exam: NORMAL INSPECTION, NORMOCEPHALIC - Eye Exam Eye Exam: Normal appearance Pupil Exam: NORMAL ACCOMODATION - ENT Exam ENT Exam: Mucous Membranes Moist, Normal Exam - Respiratory Exam Respiratory Exam: Decreased Breath Sounds, NORMAL BREATHING PATTERN - Cardiovascular Exam Cardiovascular Exam: +S1, +S2 - GI/Abdominal Exam GI & Abdominal Exam: Soft, Normal Bowel Sounds - Extremities Exam Extremities Exam: Full ROM Additional comments: 2+edema - Neurological Exam Neurological Exam: Alert, Awake, Oriented x3 - Psychiatric Exam Psychiatric exam: Normal Affect, Normal Mood - Skin Skin Exam: Dry, Normal Color, Warm Assessment and Plan - Assessment and Plan (Free Text) Assessment: A 53 year old female who came in to the ER due to progressive shortness of breath for the past 3 months. She claimed to have shortness of breath when walking half a block. She sleeps with 2 pillows. She can not lay flat due to shortness of breath. Denies chest pain. History of hypertension but not compliant with medications due to side effects. Troponin normal x 3. Elevated BNP. Chest X ray showed no pulmonary vascular congestion.Will order echo to evaluate LV function, Stress test for ischemia, CT of chest - cardiomegaly, no infiltrates, mild pleural effusion. Doppler studies of lower extremities pending result. Uncontrolled hypertension. No cardiac work up done at [facility]. Leg sw elling. Echo done, mildly dilated ventricles, moderate concentric LV hypertrophy, severely impaired systolic function LVEF 25%, RV systolic function is normal,moderate MR,mild TR. No pericardial effusion. New onset systolic dysfunction congestive heart failure. Stress test done. LVEF 39%, abnormal result,partially reversible anteroseptal defect suspicious of ischemia. Moderate LV dysfunction and diffuse hypokinesis. Cardiac cath done yesterday. Normal coronaries,non-ischemic cardiomyopathy. Will start Entresto at home if able to afford,Will repeat echo in 3-6 months, if still low EF, will recommend AICD. Shortness of breath improved. Plan: Post cardiac cath yesterday, normal coronaries, non ischemic cardiomyopathy LVEF 35%, Will start Entresto as out patient if able to afford Will repeat echo in 3-6 months, if still low EF, will recommened AICD No distress, denies shortness of breath Controlled blood pressure Controlled heart rate On Zestril 20 mg daily,Lasix 20 mg daily,Hydralazine 25 mg BID, Lopressor 25 mg BID, Heparin 5000 units every 8 hours Continue current treatment Continue current medications Lifestyle modification Weight reduction May discharge from cardiac standpoint and follow up in office in 2-3 weeks Will follow up Plan and treatment discussed with Dr. Roe
[2018-08-28] MEDS: Pantoprazole 40 mg EC Tab PO SCH (06:53)
[2018-08-28 07:33] LABS: BASO # 0.01 K/mm3 (0.0-2.0); BASO % 0.2 % (0.0-3.0); EOS # 0.3 (0.0-0.7); EOS % 5.7 % (1.5-5.0); HEMOGLOBIN 10.2 g/dL (12.0-16.0); LYMPH # 0.9 (1.2-3.4); LYMPH % 21.1 % (22.0-35.0); MEAN CELL VOLUME 83.5 fl (80.0-105.0); MEAN CORPUSCULAR HEMOGLOBIN 25.4 pg (25.0-35.0); MEAN CORPUSCULAR HGB CONC 30.4 g/dl (31.0-37.0); MEAN PLATELET VOLUME 11.2 fl (7.0-11.0); MONO # 0.9 (0.1-0.6); MONO % 20.5 % (1.0-6.0); PLATELET COUNT 232 10^3/uL (120.0-450.0); RBC 4.01 10^6/uL (3.5-6.1); RED CELL DISTRIBUTION WIDTH 15.8 % (11.5-14.5); WHITE BLOOD COUNT 4.4 10^3/uL (4.5-11.0)
[2018-08-28 07:51] LABS: ALBUMIN 3.5 g/dL (3.0-4.8); ALT/SGPT 67 U/L (7-56); AST/SGOT 50 U/L (14-36); BLOOD UREA NITROGEN 14 mg/dL (7-21); CALCIUM 8.8 mg/dL (8.4-10.5); GFR NON-AFRICAN AMERICAN > 60
[2018-08-28] MEDS: Insulin Reg-LOW-Coverage SC SCH ×3 (07:58→16:30)
[2018-08-28 08:37] LABS: BASOPHIL 2 % (0.0-1.0); EOSINOPHIL 7 % (0.0-3.0); LYMPHOCYTE 36 % (22.0-35.0); MONOCYTE 16 % (1.0-6.0); NEUTROPHIL 39 % (50.0-70.0)
[2018-08-28 08:38] LABS: LARGE PLATELETS PRESENT; PLATELET ESTIMATE NORMAL (NORMAL)
[2018-08-28 13:15] VITALS: RESP 20
[2018-08-28 15:40] LABS: HEMOGLOBIN A 97.5 Percent (>96.0); HEMOGLOBIN A2 1.5 Percent (1.8-3.5)
[2018-08-28 16:52] VITALS: BP 113/72; TEMP 98
[2018-08-28 17:52] VITALS: PULSE 88
--- NOTE | 2018-08-28 22:10 | CP.PCM.DIS ---
<Eddy Sánchez - Last Filed: 08/28/18 22:00> Provider - Provider Date of Admission: 08/22/18 20:37 Attending physician: Apolonia South MD Consults: 08/22/18 22:03 Physician Consult Routine Comment: Consulting Provider: Gunnar Wong Consulting Physician: Gunnar Wong Reason for Consult: new onset CHF Time Spent in preparation of Discharge (in minutes): 45 Diagnosis - Discharge Diagnosis (1) CHF exacerbation Status: Chronic Hospital Course - Lab Results Lab Results: Most Recent Lab Values WBC 4.4 10^3/uL (4.5-11.0) L 08/28/18 07:00 RBC 4.01 10^6/uL (3.5-6.1) 08/28/18 07:00 Hgb 10.2 g/dL (12.0-16.0) L 08/28/18 07:00 Hct 33.5 % (36.0-48.0) L 08/28/18 07:00 MCV 83.5 fl (80.0-105.0) 08/28/18 07:00 MCH 25.4 pg (25.0-35.0) 08/28/18 07:00 MCHC 30.4 g/dl (31.0-37.0) L 08/28/18 07:00 RDW 15.8 % (11.5-14.5) H 08/28/18 07:00 Plt Count 232 10^3/uL (120.0-450.0) 08/28/18 07:00 MPV 11.2 fl (7.0-11.0) H 08/28/18 07:00 Neut % (Auto) 52.5 % (50.0-68.0) 08/28/18 07:00 Lymph % (Auto) 21.1 % (22.0-35.0) L 08/28/18 07:00 [place] % (Auto) 20.5 % (1.0-6.0) H 08/28/18 07:00 Eos % (Auto) 5.7 % (1.5-5.0) H 08/28/18 07:00 Baso % (Auto) 0.2 % (0.0-3.0) 08/28/18 07:00 Lymph # (Auto) 0.9 (1.2-3.4) L 08/28/18 07:00 [place] # (Auto) 0.9 (0.1-0.6) H 08/28/18 07:00 Eos # (Auto) 0.3 (0.0-0.7) 08/28/18 07:00 Baso # (Auto) 0.01 K/mm3 (0.0-2.0) 08/28/18 07:00 Absolute Neuts (auto) 2.31 (1.4-6.5) 08/28/18 07:00 Neutrophils % (Manual) 39 % (50.0-70.0) L 08/28/18 07:00 Lymphocytes % (Manual) 36 % (22.0-35.0) H 08/28/18 07:00 Monocytes % (Manual) 16 % (1.0-6.0) H 08/28/18 07:00 Eosinophils % (Manual) 7 % (0.0-3.0) H 08/28/18 07:00 Basophils % (Manual) 2 % (0.0-1.0) H 08/28/18 07:00 Differential Comment See pathology report 08/26/18 05:00 Platelet Evaluation Normal (NORMAL) 08/28/18 07:00 Large Platelets Present 08/28/18 07:00 Hemoglobin A 97.5 Percent (>96.0) 08/26/18 20:19 Hemoglobin A2 1.5 Percent (1.8-3.5) L 08/26/18 20:19 Hemoglobin C 0.0 Percent (0.0-0.0) 08/26/18 20: Hemoglobin F () <1.0 Percent (<2.0) 08/26/18 20: Hemoglobin S 0.0 Percent (0.0-0.0) 08/26/18 20: Variant Hemoglobin 0.0 Percent (0.0-0.0) 08/26/18 20: Hemoglobinopathy Red Blood Count 3.52 Mill/mcL (3.80-5.10) L 08/26/18 20:19 Hemoglobinopathy Hct 29.7 % (35.0-45.0) L 08/26/18 20: Hemoglobinopathy Hgb 9.2 g/dL (11.7-15.5) L 08/26/18 20:19 Hemoglobinopathy MCV 84.4 fL (80.0-100.0) 08/26/18 20:19 Hemoglobinopathy MCH 26.2 pg (27.0-33.0) L 08/26/18 20: Hemoglobinopathy RDW 17.7 % (11.0-15.0) H 08/26/18 20:19 Hemoglobinopathy Interp See note 08/26/18 20: PT 14.4 SECONDS (9.4-12.5) H 08/22/18 17:19 INR 1.30 08/22/18 17: APTT 29.7 Seconds (26.9-38.3) 08/22/18 17:19 D-Dimer, Quantitative 460 ng/mlDDU (0-243) H 08/23/18 12:30 Sodium 138 mmol/L (132-148) 08/28/18 07:00 Potassium 4.4 mmol/L (3.6-5.0) 08/28/18 07:00 Chloride 105 mmol/L (98-107) 08/28/18 07:00 Carbon Dioxide 30 mmol/L (21-33) 08/28/18 07:00 Anion Gap 7 (10-20) L 08/28/18 07:00 BUN 14 mg/dL (7-21) 08/28/18 07:00 Creatinine 0.9 mg/dl (0.7-1.2) 08/28/18 07:00 Est GFR ( Amer) > 60 08/28/18 07:00 Est GFR (Non-Af Amer) > 60 08/28/18 07:00 POC Glucose (mg/dL) 138 mg/dL (65-110) H 08/28/18 15:52 Random Glucose 85 mg/dL (70-110) 08/28/18 07:00 Hemoglobin A1c 6.6 % (4.2-6.5) H 08/23/18 07:15 Calcium 8.8 mg/dL (8.4-10.5) 08/28/18 07:00 Phosphorus 3.6 mg/dL (2.5-4.5) 08/28/18 07:00 Magnesium 2.3 mg/dL (1.7-2.2) H 08/28/18 07:00 Iron 16 ug/dL (45-180) L 08/26/18 05:00 TIBC 395 ug/dL (265-497) 08/26/18 05:00 % Saturation 4 % (20-55) L 08/26/18 05:00 Ferritin 19.9 ng/mL 08/26/18 05:00 Total Bilirubin 0.9 mg/dL (0.2-1.3) 08/28/18 07:00 AST 50 U/L (14-36) H 08/28/18 07:00 ALT 67 U/L (7-56) H 08/28/18 07:00 Alkaline Phosphatase 93 U/L (38-126) 08/28/18 07:00 Lactate Dehydrogenase 705 U/L (333-699) H 08/23/18 07:15 Total Creatine Kinase 173 U/L (35-230) 08/22/18 19:00 Troponin I 0.02 ng/mL 08/23/18 07:15 NT-Pro-B Natriuret Pep 3520 pg/mL (0-450) H 08/22/18 19:00 Total Protein 6.9 g/dL (5.8-8.3) 08/28/18 07:00 Albumin 3.5 g/dL (3.0-4.8) 08/28/18 07:00 Globulin 3.4 gm/dL 08/28/18 07:00 Albumin/Globulin Ratio 1.0 (1.1-1.8) L 08/28/18 07:00 Triglycerides 51 mg/dL (35-160) 08/23/18 07:15 Cholesterol 117 mg/dL (130-200) L 08/23/18 07:15 LDL Cholesterol Direct 73 mg/dL (0-129) 08/23/18 07:15 HDL Cholesterol 34 mg/dL (29-60) 08/23/18 07:15 Vitamin B12 516 pg/mL (239-931) 08/26/18 05:00 Folate 7.2 ng/mL 08/26/18 05:00 Free T4 1.22 ng/dL (0.78-2.19) 08/23/18 07:15 TSH 3rd Generation 1.20 mIU/mL (0.46-4.68) 08/23/18 07:15 Beta HCG, Quant < 2.39 mIU/mL (0-6.15) 08/22/18 17:39 Urine Opiates Screen Negative (NEGATIVE) 08/23/18 06:30 Urine Methadone Screen Negative (NEGATIVE) 08/23/18 06:30 Ur Barbiturates Screen Negative (NEGATIVE) 08/23/18 06:30 Ur Phencyclidine Scrn Negative (NEGATIVE) 08/23/18 06:30 Ur Amphetamines Screen Negative (NEGATIVE) 08/23/18 06:30 U Benzodiazepines Scrn Negative (NEGATIVE) 08/23/18 06:30 U Oth Cocaine Metabols Negative (NEGATIVE) 08/23/18 06:30 U Cannabinoids Screen Negative (NEGATIVE) 08/23/18 06:30 - Hospital Course Hospital Course: Upon Admission: 53 year old female with PMHx of HTN who presented to the ED complaining of worsening shortness of breath for 3 months in duration. Patient will be admitted for new onset CHF likely due to uncontrolled HTN. Hospital Course: EKG revealed sinus tachycardia, LAE CXR: no active disease Abd U/s: unremarkable. small R pleural effusion Chest CT: no PE. Cardiomegaly. No infiltrates. Mild bilateral adrenal hyperplasia is not excluded Echocardiogram: LV mildly dilated. Systolic function is severely impaired, EF- 25%. RVSF is normal. L atrium mildly dilated. Stress test: abnormal SPECT study, partially reversible, anteroseptal defect is suspicious of ischemia. Cardiac cath: Normal coronaries, Non-ischemic cardiomyopathy. EF 35-45% Pt was treated with CHF exacerbation with IV lasix. She underwent cardiac cath revealing normal coronaries and non-ischemic cardiomyopathy. Cardiology was following the pt. Recommended antihypertensives and repeat echo in 3-6 months, with possibility of AICD if EF remains low Upon Discharge: Pt is feeling better. Vital signs stable. Pt to f/u outpatient clinic this week. Pt instructed on medication compliance, outpatient followup and to return to ED if symptoms return. Discharge Exam - Head Exam Head Exam: NORMAL INSPECTION, NORMOCEPHALIC - Eye Exam Eye Exam: EOMI, Normal appearance - ENT Exam ENT Exam: Mucous Membranes Moist, Normal Exam - Respiratory Exam Respiratory Exam: NORMAL BREATHING PATTERN, UNREMARKABLE - Cardiovascular Exam Cardiovascular Exam: REGULAR RHYTHM, +S1, +S2 - GI/Abdominal Exam GI & Abdominal Exam: Normal Bowel Sounds, Unremarkable - Extremities Exam Extremities exam: normal inspection, pedal edema - Back Exam Back exam: NORMAL INSPECTION - Neurological Exam Neurological exam: Alert, Oriented x3 - Psychiatric Exam Psychiatric exam: Normal Affect, Normal Mood - Skin Skin Exam: Dry, Intact, Warm Discharge Plan - Discharge Medications Prescriptions: Aspirin [Ecotrin] 81 mg PO DAILY #14 tabec Carvedilol [Coreg] 25 mg PO BID #28 tab Ferrous Sulfate [Feosol] 324 mg PO TID #52 ect Furosemide [Lasix] 40 mg PO DAILY #14 tab Lisinopril [Zestril] 20 mg PO DAILY #14 tab Spironolactone [Aldactone] 25 mg PO DAILY #14 tab - Follow Up Plan Condition: STABLE Disposition: HOME/ ROUTINE Instructions: Heart Failure (DC), Heart Failure (GEN), Pacemaker (DC), Pacemaker (GEN), Pulmonary Edema (DC), Pulmonary Edema (GEN), Ascites (DC), Ascites (GEN) Additional Instructions: Please follow up with [facility] clinic. You have an appointment at the [facility] on 08/31/18 at 3:30pm. Please arrive at least 30 minutes early to your appointment with a photo ID and your insurance care paperwork or ID card. Please START taking the following medications: Lisinopril 20mg daily (blood pressure) Carvedilol 25mg twice a day (blood pressure/heart rate) Aspirin 81mg daily Furosemide 40mg daily (water pill) Spironolactone 25mg daily (blood pressure) Ferrous Sulfate 324mg daily (iron) Please discuss these medications with your doctor. Please follow up with your technical solutions engineer (heart doctor), Dr. Roe within 3-5 days. If you are unable to visit Dr. Roe, please follow up at the [facility] cardiac clinic. You were found to have an enlarged left adrenal gland on CAT scan of your chest. You will need further imaging with a MRI with your primary care doctor. Please notify your doctor of these findings. If your symptoms return, or you experience new symptoms, please return to the nearest emergency room Referrals: Outpatient Clinic, [facility] [Other] (You will first need to establish [facility] with the hospital. Please do this as soon as possible. You must make an appointment for this clinic, they do NOT accept walk-ins Appointments Only [phone] Monday - Monday, 8:00 am - 4:00 pm) [facility] at [facility] [Outside] Gunnar Roe MD [Staff Provider] - <Apolonia South - Last Filed: 08/29/18 14:28> Provider - Provider Date of Admission: 08/22/18 20:37 Attending physician: Apolonia South MD Consults: 08/22/18 22:03 Physician Consult Routine Comment: Consulting Provider: Gunnar Wong Consulting Physician: Gunnar Wong Reason for Consult: new onset CHF Hospital Course - Lab Results Lab Results: Most Recent Lab Values WBC 4.4 10^3/uL (4.5-11.0) L 08/28/18 07:00 RBC 4.01 10^6/uL (3.5-6.1) 08/28/18 07:00 Hgb 10.2 g/dL (12.0-16.0) L 08/28/18 07:00 Hct 33.5 % (36.0-48.0) L 08/28/18 07:00 MCV 83.5 fl (80.0-105.0) 08/28/18 07:00 MCH 25.4 pg (25.0-35.0) 08/28/18 07:00 MCHC 30.4 g/dl (31.0-37.0) L 08/28/18 07:00 RDW 15.8 % (11.5-14.5) H 08/28/18 07:00 Plt Count 232 10^3/uL (120.0-450.0) 08/28/18 07:00 MPV 11.2 fl (7.0-11.0) H 08/28/18 07:00 Neut % (Auto) 52.5 % (50.0-68.0) 08/28/18 07:00 Lymph % (Auto) 21.1 % (22.0-35.0) L 08/28/18 07:00 [place] % (Auto) 20.5 % (1.0-6.0) H 08/28/18 07:00 Eos % (Auto) 5.7 % (1.5-5.0) H 08/28/18 07:00 Baso % (Auto) 0.2 % (0.0-3.0) 08/28/18 07:00 Lymph # (Auto) 0.9 (1.2-3.4) L 08/28/18 07:00 [place] # (Auto) 0.9 (0.1-0.6) H 08/28/18 07:00 Eos # (Auto) 0.3 (0.0-0.7) 08/28/18 07:00 Baso # (Auto) 0.01 K/mm3 (0.0-2.0) 08/28/18 07:00 Absolute Neuts (auto) 2.31 (1.4-6.5) 08/28/18 07:00 Neutrophils % (Manual) 39 % (50.0-70.0) L 08/28/18 07:00 Lymphocytes % (Manual) 36 % (22.0-35.0) H 08/28/18 07:00 Monocytes % (Manual) 16 % (1.0-6.0) H 08/28/18 07:00 Eosinophils % (Manual) 7 % (0.0-3.0) H 08/28/18 07:00 Basophils % (Manual) 2 % (0.0-1.0) H 08/28/18 07:00 Differential Comment See pathology report 08/26/18 05:00 Platelet Evaluation Normal (NORMAL) 08/28/18 07:00 Large Platelets Present 08/28/18 07:00 Hemoglobin A 97.5 Percent (>96.0) 08/26/18 20:19 Hemoglobin A2 1.5 Percent (1.8-3.5) L 08/26/18 20:19 Hemoglobin C 0.0 Percent (0.0-0.0) 08/26/18 20: Hemoglobin F () <1.0 Percent (<2.0) 08/26/18 20: Hemoglobin S 0.0 Percent (0.0-0.0) 08/26/18 20: Variant Hemoglobin 0.0 Percent (0.0-0.0) 08/26/18 20:19 Hemoglobinopathy Red Blood Count 3.52 Mill/mcL (3.80-5.10) L 08/26/18 20:19 Hemoglobinopathy Hct 29.7 % (35.0-45.0) L 08/26/18 20:19 Hemoglobinopathy Hgb 9.2 g/dL (11.7-15.5) L 08/26/18 20:19 Hemoglobinopathy MCV 84.4 fL (80.0-100.0) 08/26/18 20:19 Hemoglobinopathy MCH 26.2 pg (27.0-33.0) L 08/26/18 20:19 Hemoglobinopathy RDW 17.7 % (11.0-15.0) H 08/26/18 20:19 Hemoglobinopathy Interp See note 08/26/18 20:19 PT 14.4 SECONDS (9.4-12.5) H 08/22/18 17:19 INR 1.30 08/22/18 17:19 APTT 29.7 Seconds (26.9-38.3) 08/22/18 17:19 D-Dimer, Quantitative 460 ng/mlDDU (0-243) H 08/23/18 12:30 Sodium 138 mmol/L (132-148) 08/28/18 07:00 Potassium 4.4 mmol/L (3.6-5.0) 08/28/18 07:00 Chloride 105 mmol/L (98-107) 08/28/18 07:00 Carbon Dioxide 30 mmol/L (21-33) 08/28/18 07:00 Anion Gap 7 (10-20) L 08/28/18 07:00 BUN 14 mg/dL (7-21) 08/28/18 07:00 Creatinine 0.9 mg/dl (0.7-1.2) 08/28/18 07:00 Est GFR ( Amer) > 60 08/28/18 07:00 Est GFR (Non-Af Amer) > 60 08/28/18 07:00 POC Glucose (mg/dL) 138 mg/dL (65-110) H 08/28/18 15:52 Random Glucose 85 mg/dL (70-110) 08/28/18 07:00 Hemoglobin A1c 6.6 % (4.2-6.5) H 08/23/18 07:15 Calcium 8.8 mg/dL (8.4-10.5) 08/28/18 07:00 Phosphorus 3.6 mg/dL (2.5-4.5) 08/28/18 07:00 Magnesium 2.3 mg/dL (1.7-2.2) H 08/28/18 07:00 Iron 16 ug/dL (45-180) L 08/26/18 05:00 TIBC 395 ug/dL (265-497) 08/26/18 05:00 % Saturation 4 % (20-55) L 08/26/18 05:00 Ferritin 19.9 ng/mL 08/26/18 05:00 Total Bilirubin 0.9 mg/dL (0.2-1.3) 08/28/18 07:00 AST 50 U/L (14-36) H 08/28/18 07:00 ALT 67 U/L (7-56) H 08/28/18 07:00 Alkaline Phosphatase 93 U/L (38-126) 08/28/18 07:00 Lactate Dehydrogenase 705 U/L (333-699) H 08/23/18 07:15 Total Creatine Kinase 173 U/L (35-230) 08/22/18 19:00 Troponin I 0.02 ng/mL 08/23/18 07:15 NT-Pro-B Natriuret Pep 3520 pg/mL (0-450) H 08/22/18 19:00 Total Protein 6.9 g/dL (5.8-8.3) 08/28/18 07:00 Albumin 3.5 g/dL (3.0-4.8) 08/28/18 07:00 Globulin 3.4 gm/dL 08/28/18 07:00 Albumin/Globulin Ratio 1.0 (1.1-1.8) L 08/28/18 07:00 Triglycerides 51 mg/dL (35-160) 08/23/18 07:15 Cholesterol 117 mg/dL (130-200) L 08/23/18 07:15 LDL Cholesterol Direct 73 mg/dL (0-129) 08/23/18 07:15 HDL Cholesterol 34 mg/dL (29-60) 08/23/18 07:15 Vitamin B12 516 pg/mL (239-931) 08/26/18 05:00 Folate 7.2 ng/mL 08/26/18 05:00 Free T4 1.22 ng/dL (0.78-2.19) 08/23/18 07:15 TSH 3rd Generation 1.20 mIU/mL (0.46-4.68) 08/23/18 07:15 Beta HCG, Quant < 2.39 mIU/mL (0-6.15) 08/22/18 17:39 Urine Opiates Screen Negative (NEGATIVE) 08/23/18 06:30 Urine Methadone Screen Negative (NEGATIVE) 08/23/18 06:30 Ur Barbiturates Screen Negative (NEGATIVE) 08/23/18 06:30 Ur Phencyclidine Scrn Negative (NEGATIVE) 08/23/18 06:30 Ur Amphetamines Screen Negative (NEGATIVE) 08/23/18 06:30 U Benzodiazepines Scrn Negative (NEGATIVE) 08/23/18 06:30 U Oth Cocaine Metabols Negative (NEGATIVE) 08/23/18 06:30 U Cannabinoids Screen Negative (NEGATIVE) 08/23/18 06:30 Attending/Attestation - Attestation I have personally seen and examined this patient.: Yes I have fully participated in the care of the patient.: Yes I have reviewed all pertinent clinical information, including history, physical exam and plan: Yes Notes (Text): 08/29/18 14:26 Attending note; Patient seen and examined with resident. Patient is alert and awake. Denies any chest pain, shortness of breath. Status post cardiac cath yesterday. Ambulating fine. Tolerating diet. Patient is a 53-year-old female past medical history significant for hypertension and noncompliance with medications that presented to the emergency room with shortness of breath and lower extremity edema worsening over the past 3 months. 1. Dyspnea secondary toacute systolic CHF exacerbation. S/P stress test showed abnormal SPECT myocardioal study, partially reversible anteroseptal defect suspicious for ischemia, moderated LV dysfunction with diffuse hypokinesis. Cardiac cath showed normal coronaries. Continue IV Lasix. Continue ASA, lisinopril, and Coreg. 2-D echo shows left ventricle is mildly dilated, moderate concentric left ventricular hypertrophy, systolic function is severely impaired, ejection fraction 25%, right ventricular systolic function is normal, right ventricle is normal size, right atrium size is normal, left atrium is mildly dilated, no pericardial effusion, mitral regurgitation is moderate. Chest CT showed cardiomegaly, no significant pulmonary artery dilatation, no definitive infiltrates, mild right and minimal left pleural effusions are noted as well as minimal subtle segmental dependent atelectasis bilaterally, mild bilateral adrenal hyperplasia not excluded. CTA chest showed no evidence of central pulmonary embolus; prominent pulmonary trunk with a reflux of contrast material into the hepatic IVC; mild right and minor left sided effusions both of which are decreased in size from prior study; enlarged left adrenal gland. 2. Hypertension. Continue lisinopril and Coreg. Continue IV Lasix. Continue hydralazine prn 3. Elevated T. Bili. Currently normalized; possibly secondary to passive liver congestion due to cardiomyopathy and CHF. No abdominal pain. Abdominal ultrasound showed unremarkable abdominal ultrasound examination, small right pleural effusion noted. 4. Bilateral lower extremity edema. Lower extremity venous Dopplers negative for DVT. Continue IV Lasix. 5. Enlarged adrenal gland on CTA chest. Patient to have outpatient follow up for further work-up/imaging as outpatient. Patient will be referred to [facility] clinic upon discharge. Appointment made. Medications delivered by the bedside. Patient needs close follow-up with PMD and cardiology. 08/29/18 14:28
== END 2018-08-28 18:45 | disposition home or self-care (01) | DRG 192 ==
LOC: ED 16:05 → ERH 20:37 → 2RNO 22:06 → 2RSO 08-27 13:34
PROVIDERS: ADMIT Internal Medicine; ATTEND Internal Medicine
PROC: 4A023N7 Measurement of Cardiac Sampling and Pressure, Left Heart, Percutaneous Approach (ICD-10-PCS; principal; 2018-08-27)
PROC: B211YZZ Fluoroscopy of Multiple Coronary Arteries using Other Contrast (ICD-10-PCS; 2018-08-27)
PROC: B215YZZ Fluoroscopy of Left Heart using Other Contrast (ICD-10-PCS; 2018-08-27)
DX: I11.0 Hypertensive heart disease with heart failure (principal); I50.23 Acute on chronic systolic (congestive) heart failure; I47.2 Ventricular tachycardia; I16.0 Hypertensive urgency; I42.9 Cardiomyopathy, unspecified; Z91.14 Patient's other noncompliance with medication regimen; Z82.49 Family history of ischemic heart disease and other diseases of the circulatory system